=== PATIENT | female | born 1955 | race Caucasian/White ===

== ENCOUNTER 2017-05-15 18:53 | Inpatient (IN) | payer MEDICARE, OTHER ==
[~2017-05-15] VITALS: Ht 160 cm; Wt 50.2 kg
[~2017-05-15 18:53] MED LIST: ALPR1TAB2 PO; METH5TAB2 PO
[2017-05-15] MEDS ORDERED: ONDANSETRON HCL/PF 4 MG/2 ML VIAL IVP ONE (20:00)
[2017-05-15] MEDS ORDERED: IV NS 0.9% 1,000 ML BAG IV ONE ×2 (20:00→23:00)
[2017-05-15] MEDS ORDERED: HYDROMORPHONE 1 MG/1 ML DISP.SYRIN IV ONE (20:00)
[2017-05-15] MEDS ORDERED: ONDANSETRON HCL/PF 4 MG/2 ML VIAL ONE ×2 (20:34→22:51)
[2017-05-15] MEDS ORDERED: HYDROMORPHONE 1 MG/1 ML DISP.SYRIN ONE (20:34)
--- NOTE | 2017-05-15 21:00 | NUR ---
PT A/OX4 BREATHIGN EFFORTLESSLY ON ROOM AIR, PT STATES SHE HAS BEEN HVAING BAD ABD PAIN WITH N/V AND LEG CRAMPING X 1 DAY, PT ON MONITOR, IV PLACED, LABS DRAWN, MADE AWARE WILL CONTINUE TO MONITOR.
[2017-05-15 21:14] LABS: BASOPHILS # (AUTO) 0.4 /CMM (0.0-0.2); BASOPHILS % (AUTO) 2.3 % (0.0-2.0); EOSINOPHILS % (AUTO) 0.2 % (0.0-6.0); HEMATOCRIT 50 % (33-45); HEMOGLOBIN 16.9 g/dL (11.5-14.8); LYMPHOCYTES # (AUTO) 0.5 /CMM (0.8-4.8); LYMPHOCYTES % (AUTO) 3.2 % (20.0-44.0); MEAN CORPUSCULAR HEMOGLOBIN 32 PG (26.0-33.0); MEAN CORPUSCULAR HGB CONC 34 g/dl (31.0-36.0); MEAN CORPUSCULAR VOLUME 96 fL (82-100); MONOCYTES # (AUTO) 0.6 /CMM (0.1-1.30); MONOCYTES % (AUTO) 3.5 % (2.0-12.0); NEUTROPHILS # (AUTO) 14.8 /CMM (1.8-8.9); NEUTROPHILS % (AUTO) 90.8 % (43.0-81.0); PLATELET COUNT (AUTO) 159 /CMM (150-450); RDW COEFFICIENT OF VARIATION 11.7 (11.5-15.0); RED BLOOD CELL COUNT(AUTO) 5.26 MIL/uL (4.0-5.2); WHITE BLOOD COUNT (AUTO) 16.3 K/uL (4.3-11.0)
[2017-05-15 21:21] LABS: CALCIUM, SERUM 11.1 mg/dL (8.5-10.1); CREATININE 1.5 mg/dL (0.6-1.3); POTASSIUM 4.2 mmol/L (3.5-5.1)
[2017-05-15 21:34] LABS: ALBUMIN 4.9 g/dL (3.4-5.0); BILIRUBIN,DIRECT 0.1 mg/dL (0.0-0.2); BILIRUBIN,TOTAL 0.5 mg/dL (0.2-1.0); TOTAL PROTEIN, SERUM 9.5 g/dL (6.4-8.2)
[2017-05-15 21:51] LABS: BAND % (MANUAL) 4 % (0.0-5.0); EOSINOPHILS % (MANUAL) 1 % (0-4); LYMPHOCYTES % (MANUAL) 3 % (16-48); MONOCYTES % (MANUAL) 3 % (0-11.0); NEUTROPHILS % (MANUAL) 89 (42-76)
[2017-05-15] MEDS ORDERED: [UNRECOGNIZED DRUG - MIXTURE] IV SCH (22:00)
[2017-05-15] MEDS ORDERED: METRONIDAZOLE 500MG/ NS 100ML 500 MG in PREMIX 1 EA IV SCH ×2 (22:00→23:00)
--- NOTE | 2017-05-15 22:18 | NUR ---
CALLED NURSING SUP. FOR MS BED
--- NOTE | 2017-05-15 22:24 | NUR ---
CALLED (SHELF STOCKER SURGEON), TRANSFERRED CALL TO VALDEZ ([place])
--- NOTE | 2017-05-15 22:36 | NUR ---
[facility] PAGED, JESSICA CHATMAN GROUT PUMP OPERATOR
--- NOTE | 2017-05-15 22:48 | NUR ---
OG TUBE INSERTION ATTEMPTED, PT BEGAN TO VOMIT AND IS REFUSING ANOTHER TRY, SHANTE KHANNA MADE AWARE WILL CONTINUE TO MONITOR.
[2017-05-15] MEDS ORDERED: METRONIDAZOLE 500MG/ NS 100ML 100 ML IV ONE (22:51)
[2017-05-15] MEDS ORDERED: LEVOFLOXACIN 750 MG /D5W 150ML 750 MG in PREMIX 1 EA IV SCH (23:00)
[2017-05-15] MEDS ORDERED: ONDANSETRON HCL/PF - ER 4 MG/2 ML VIAL IV ONE (23:00)
[2017-05-15] MEDS ORDERED: Z GUARD REMEDY 2 OZ OINT TP PRN (23:30)
[2017-05-15] MEDS ORDERED: MAGNESIUM HYDROXIDE 30 ML UDC PO PRN (23:30)
[2017-05-15] MEDS ORDERED: ALPRAZOLAM 1 MG TABLET PO PRN (23:30)
[2017-05-15] MEDS ORDERED: MAG HYDROX/AL HYDROX/SIMETH 30 ML UDC PO PRN (23:30)
[2017-05-15] MEDS ORDERED: HYDROCODONE/APAP 5/325MG 1 EACH TABLET PO PRN (23:30)
[2017-05-15] MEDS ORDERED: ACETAMINOPHEN 325 MG TABLET PO PRN (23:30)
[2017-05-16] VITALS: BP 135/77
[2017-05-16] MEDS ORDERED: MEROPENEM 1 G in IV NS 0.9% 100 ML IV SCH ×2
--- NOTE | 2017-05-16 | NUR ---
MS VENDING MACHINE REPAIRER INITIAL NOTES ADMIT PT FROM ER VIA ALISIA ACCOMPANIED BY SUPERVISOR LENS GENERATING. DX OF SMALL BOWEL OBSTRUCTION. PT IS ALERT ORIENTED X3 ABLE TO AMBULATE WITH ASSISTANCE AND USING CANE. AWARE WHERE SHE AT AND RE-ORIENTED HER HOW TO USED THE CALL LIGHT SYSTEM. DENIES ANY PAIN OR ANY DISCOMFORT AT THIS TIME. NO N/V NOTED TOO. NO SIGNS OF ANY ACUTE DISTRESS NOTED WELL. IVF NS INFUSING AT THIS TIME ON HER LEFT FOREARM PATENT AND INTACT NO REDNESS NOTED. KEPT HER WARM AND COMFORTABLE AT ALL TIMES. PLACE CALL LIGHT AT REACH. WILL CONTINUE TO MONITOR.
[2017-05-16] MEDS ORDERED: ALPRAZOLAM 0.25 MG TABLET ONE (00:44)
--- NOTE | 2017-05-16 00:44 | NUR ---
RETREAD TECHNICIAN/NOTES ANNETTEREM IVP BAG 1 GM HUNG BY ANOTHER NURSE KARINA /RN ORDERED.
--- NOTE | 2017-05-16 01:04 | NUR ---
TUMBLER MACHINE OPERATOR HELPER/NOTES XANAX .25 MG PO GIVEN PER PT REQUESTED ORDERED. EDUCATE PT REGARDING SIDE EFFECT AND PT UNDERSTOOD WELL KEPT HER SAFE AT ALL TIMES. WILL CONTINUE TO MONITOR. PLACE CALL LIGHT AT REACH.
--- NOTE | 2017-05-16 01:30 | NUR ---
SR. LOGISTICS ANALYST/NOTES GOT REPORT FROM LAB REGARDING CRITICAL LAB RESULT , LACTIC ACID 2.O AWARE. PT ON IVF OF NS AT THIS TIME. WILL CONTINUE TO MONITOR.
[2017-05-16 03:25] LABS: BASOPHILS % (AUTO) 0.1 % (0.0-2.0); HEMATOCRIT 42 % (33-45); HEMOGLOBIN 14.1 g/dL (11.5-14.8); LYMPHOCYTES # (AUTO) 0.4 /CMM (0.8-4.8); MEAN CORPUSCULAR HEMOGLOBIN 32 PG (26.0-33.0); MEAN CORPUSCULAR HGB CONC 34 g/dl (31.0-36.0); MEAN CORPUSCULAR VOLUME 96 fL (82-100); MONOCYTES # (AUTO) 0.2 /CMM (0.1-1.30); MONOCYTES % (AUTO) 2.7 % (2.0-12.0); NEUTROPHILS # (AUTO) 8.2 /CMM (1.8-8.9); NEUTROPHILS % (AUTO) 92.2 % (43.0-81.0); PLATELET COUNT (AUTO) 151 /CMM (150-450); RDW COEFFICIENT OF VARIATION 12.7 (11.5-15.0); RED BLOOD CELL COUNT(AUTO) 4.36 MIL/uL (4.0-5.2); WHITE BLOOD COUNT (AUTO) 8.9 K/uL (4.3-11.0)
[2017-05-16 03:39] LABS: CALCIUM, SERUM 8.7 mg/dL (8.5-10.1); CREATININE 1.1 mg/dL (0.6-1.3); PHOSPHORUS 5.4 mg/dL (2.5-4.9); POTASSIUM 4.4 mmol/L (3.5-5.1)
[2017-05-16 03:50] LABS: THYROID STIMULATING HORMONE 0.779 uIU/mL (0.358-3.74)
--- NOTE | 2017-05-16 04:57 | NUR ---
OFFSHORE WIND OPERATIONS MANAGER/NOTES REMAINS SLEEPING AT THIS TIME , NO N/V NOTED , RESPIRATION EVEN AND NON-LABORED, NOT IN ANY ACUTE DISTRESS NOTED. KEPT HER WARM AND COMFORTABLE AT ALL TIMES. PLACE CALL AT REACH.
[2017-05-16] MEDS ORDERED: ONDANSETRON HCL/PF 4 MG/2 ML VIAL ONE (05:48)
[2017-05-16] MEDS ORDERED: HYDROMORPHONE 1 MG/1 ML DISP.SYRIN ONE (05:49)
[2017-05-16] MEDS: ONDANSETRON HCL/PF 4 MG/2 ML VIAL IVP PRN ×2 (05:52→17:42)
[2017-05-16] MEDS: HYDROMORPHONE 1 MG/1 ML DISP.SYRIN IV PRN ×2 (05:55→15:11)
[2017-05-16] MEDS: IV NS 0.9% 1,000 ML IV PRN ×2 (06:02→08:10)
--- NOTE | 2017-05-16 06:02 | NUR ---
coil rewind machine operator/notes c/o N/v and abdominal pain 05/31 , zofran 4mg given and dilaudid 1 mg given sade IVP as ordered by another nurse. safety precaution applied and will continue to monitor.
--- NOTE | 2017-05-16 07:32 | NUR ---
SALES SUPPORT REP/CLOSING NOTES PT AWAKE AND ALERT WITH IVF NS AT 75 ML INFUSING ON HER LEFT FOREARM. NOT IN ANY ACUTE DISTRESS NOTED. DUE MEDS GIVEN. NO N/V AFTER PRN MED GIVEN,. SLEPT WELL. KEPT HER WARM AND COMFORTABLE AT ALL TIMES. ENDORSE TO AM NURSE ZAHIRA FOR CONTINUITY OF CARE. PLACE CALL LIGHT AT REACH.
--- NOTE | 2017-05-16 07:34 | NUR ---
RN NOTE RECEIVED PT. PT AWAKE AND IN BED. A&OX3. NO S/S OF SOB. PT C/O NEEDING METHADONE TO HANDLE WITHDRAWAL SYMPTOMS. WILL F/U WITH PHYSICIAN. IV ACCESS LOCATED ON LFA 22G, RUNNING NS AT 75 ML/HR. SAFETY MEASURES IN PLACE. CALL LIGHT WITHIN REACH. WILL CONTINUE TO MONITOR.
[2017-05-16 08:00] VITALS: BP 113/60
[2017-05-16] MEDS: PANTOPRAZOLE 40 MG VIAL IV SCH (08:10)
[2017-05-16] MEDS ORDERED: ALPRAZOLAM 0.25 MG TABLET PO PRN (08:30)
[2017-05-16] MEDS ORDERED: METH10TA2 PO (10:07)
[2017-05-16] MEDS ORDERED: DIATR MEGLU/DIATRIZOATE SODIUM 120 ML BOTTLE (GASTROGRAPHIN) ONE (11:03)
[2017-05-16 13:18] LABS: APPEARANCE,URINE CLEAR (CLEAR); BILIRUBIN,URINE NEGATIVE (NEGATIVE); BLOOD, URINE NEGATIVE Ery/uL (NEGATIVE); COLOR,URINE YELLOW (YELLOW); KETONES,URINE NEGATIVE (NEGATIVE); LEUKOCYTE ESTERASE ,URINE NEGATIVE (NEGATIVE); NITRITE, URINE NEGATIVE (NEGATIVE); PROTEIN,URINE NEGATIVE (NEGATIVE); UGLUCOSE NEGATIVE (NEGATIVE); UROBILINOGEN,URINE 0.2 EU/dL (0.2)
[2017-05-16] MEDS: MEROPENEM 1 G in IV NS 0.9% 100 ML IV SCH (13:26)
[2017-05-16] MEDS: LORAZEPAM INJ 2 MG/ML VIAL IV PRN ×2 (13:32→21:29)
[2017-05-16 16:00] VITALS: BP 115/69
--- NOTE | 2017-05-16 18:33 | NUR ---
RN CLOSING NOTE PT IS AWAKE AND ALERT IN BED. NO S/S OF DISTRESS OR PAIN. ALL PATIENT NEEDS MET. IVF INFUSING NS AT 75ML/HR AT LFA 22G. SAFETY MEASURES IN PLACE. CALL LIGHT WITHIN REACH. WILL ENDORSE TO MIDWIFE PRACTITIONER FOR MYRON.
--- NOTE | 2017-05-16 19:30 | NUR ---
MS JUVENTINO INITIAL NOTES SEEN PT IN BED AWAKE AND ALERT WITH IVF OF NS AT 75ML/HR .NOT IN ANY ACUTE DISTRESS NOTED. SEEN BY DR LEO WITH ORDERS NOTED . KEPT HER WARM AND COMFORTABLE AT ALL TIMES. WILL CONTINUE TO MONITOR.
[2017-05-16 20:00] VITALS: BP 137/79
--- NOTE | 2017-05-16 21:30 | NUR ---
CLARK DRIVER/NOTES ATIVAN 0.5 MG IVP ADMINISTERED BY ANOTHER NURSE PER PT REQUESTED. EDUCATE PT FOR SAFETY . KEPT HER COMFORTABLE AT ALL TIMES. WILL CONTINUE MONITORING.
[2017-05-17] MEDS: MEROPENEM 1 G in IV NS 0.9% 100 ML IV SCH (00:09)
[2017-05-17 07:10] LABS: BASOPHILS % (AUTO) 0.4 % (0.0-2.0); EOSINOPHILS # (AUTO) 0.1 /CMM (0.0-0.7); EOSINOPHILS % (AUTO) 1.7 % (0.0-6.0); HEMATOCRIT 38 % (33-45); HEMOGLOBIN 12.7 g/dL (11.5-14.8); LYMPHOCYTES # (AUTO) 1.9 /CMM (0.8-4.8); LYMPHOCYTES % (AUTO) 30.9 % (20.0-44.0); MEAN CORPUSCULAR HEMOGLOBIN 32 PG (26.0-33.0); MEAN CORPUSCULAR HGB CONC 33 g/dl (31.0-36.0); MEAN CORPUSCULAR VOLUME 97 fL (82-100); MONOCYTES # (AUTO) 0.5 /CMM (0.1-1.30); MONOCYTES % (AUTO) 8.6 % (2.0-12.0); NEUTROPHILS # (AUTO) 3.6 /CMM (1.8-8.9); NEUTROPHILS % (AUTO) 58.4 % (43.0-81.0); PLATELET COUNT (AUTO) 120 /CMM (150-450); RED BLOOD CELL COUNT(AUTO) 3.94 MIL/uL (4.0-5.2); WHITE BLOOD COUNT (AUTO) 6.2 K/uL (4.3-11.0)
[2017-05-17 07:18] LABS: CALCIUM, SERUM 8.3 mg/dL (8.5-10.1); CREATININE 0.7 mg/dL (0.6-1.3); POTASSIUM 4.4 mmol/L (3.5-5.1)
--- NOTE | 2017-05-17 07:30 | NUR ---
MS/RN Patient received Patient received from maintenance worker municipal. No needs at this time, call light within reach, will continue to monitor.
[2017-05-17 08:00] VITALS: BP 130/71
--- NOTE | 2017-05-17 08:03 | NUR ---
SOLE POLISHER CLOSING NOTES PT SEEN STANDING AND DOING HER MORNING ROUTINE, NOT IN ANY ACUTE DISTRESS NOTED. STABLE REYES THE NIGHT AND SLEPT WELL AFTER ATIVAN GIVEN. ALL DUE MEDS GIVEN AND ALL NEEDS MET. HEPLOCK AT THIS TIME. ENDORSE TO AM NURSE FOR CONTINUITY OF CARE. ENDORSE TO AM NURSE FOR CONTINUITY OF CARE.
[2017-05-17] MEDS: PANTOPRAZOLE 40 MG VIAL IV SCH (08:16)
[2017-05-17] MEDS: LORAZEPAM INJ 2 MG/ML VIAL IV PRN (08:16)
--- NOTE | 2017-05-17 08:25 | NUR ---
MS/RN Medications Morning medications administered as ordered.
[2017-05-17] MEDS ORDERED: MONTELUKAST SODIUM (10MG) 10 MG TABLET PO STA (09:00)
--- NOTE | 2017-05-17 09:46 | NUR ---
MS/felt hat inspector and packer instructions / Post follow up Patient to be discharged to home. Order entered into computer by Uziel Brar NP, no new prescription needed. Education provided about signs and symptoms and when to return to the emergency room. Patient stated that she would make her own follow up appointment with her primary care doctor in 5-10 days -Dr Cortes . Exit care given to patient, time allowed for all questions and concerns to be addressed. Belongings list signed, everything accounted for. Heplock and name bands removed. Transport will be provided by career and technology education teacher.
[2017-05-17 09:57] VITALS: BP 130/71
--- NOTE | 2017-05-17 10:15 | NUR ---
MS/RN Discharged Patient discharged to home in stable condition.
== END 2017-05-17 10:04 | disposition home or self-care (01) | DRG 388 ==
LOC: ER 18:58 → MED 22:56
PROVIDERS: ADMIT Nurse Practitioner Acute Care; ATTEND Nurse Practitioner Acute Care
DX: K56.60 Unspecified intestinal obstruction (principal); N17.0 Acute kidney failure with tubular necrosis; J44.9 Chronic obstructive pulmonary disease, unspecified; M19.90 Unspecified osteoarthritis, unspecified site; Z87.891 Personal history of nicotine dependence; R74.0 Nonspecific elevation of levels of transaminase and lactic acid dehydrogenase [LDH]; Z86.19 Personal history of other infectious and parasitic diseases; Z87.898 Personal history of other specified conditions; E86.0 Dehydration
CPT/HCPCS: 36415; 72128-TC; 74250-TC; 80048-TC; 80061-TC; 80076-TC; 81000-TC; 83605-TC; 83690-TC; 83735-TC; 84100-TC; 84443-TC; 85025-TC; 87040-TC; 87081-TC; 87086-TC; A4216; A4606; C9113; J0744; J1170; J1956; J2060; J2185; J2405; J3490; J7030; Q9963; Z7610

== ENCOUNTER 2017-08-25 15:18 | Inpatient (IN) | payer MEDICARE, MEDICAID ==
[~2017-08-25] VITALS: Ht 160 cm; Wt 46.3 kg
[~2017-08-25 15:18] MED LIST changes: +METH10TA2 PO
[2017-08-25] MEDS ORDERED: Magnesium 1GM/D5W 100ML PREMIX 200 ML IV ONE (15:31)
[2017-08-25] MEDS ORDERED: Magnesium 1GM/D5W 100ML PREMIX 100 ML IV ONE ×2 (15:51→16:20)
[2017-08-25] MEDS ORDERED: DEXAMETHASONE SOD PHOSPHATE 10 MG/ML VIAL ONE (15:52)
[2017-08-25 15:53] LABS: BASOPHILS % (AUTO) 0.5 % (0.0-2.0); EOSINOPHILS # (AUTO) 0.2 /CMM (0.0-0.7); EOSINOPHILS % (AUTO) 3.6 % (0.0-6.0); HEMATOCRIT 40 % (33-45); HEMOGLOBIN 13.2 g/dL (11.5-14.8); LYMPHOCYTES # (AUTO) 1.3 /CMM (0.8-4.8); LYMPHOCYTES % (AUTO) 25.8 % (20.0-44.0); MEAN CORPUSCULAR HEMOGLOBIN 31 PG (26.0-33.0); MEAN CORPUSCULAR HGB CONC 33 g/dl (31.0-36.0); MEAN CORPUSCULAR VOLUME 94 fL (82-100); MONOCYTES # (AUTO) 0.5 /CMM (0.1-1.30); MONOCYTES % (AUTO) 9.9 % (2.0-12.0); NEUTROPHILS # (AUTO) 3.1 /CMM (1.8-8.9); NEUTROPHILS % (AUTO) 60.2 % (43.0-81.0); PLATELET COUNT (AUTO) 157 /CMM (150-450); RDW COEFFICIENT OF VARIATION 11.8 (11.5-15.0); RED BLOOD CELL COUNT(AUTO) 4.21 MIL/uL (4.0-5.2); WHITE BLOOD COUNT (AUTO) 5.1 K/uL (4.3-11.0)
[2017-08-25] MEDS ORDERED: IV NS 0.9% 1,000 ML BAG IV ONE (16:00)
[2017-08-25] MEDS ORDERED: IPRATROPIUM NEB FS 0.5 MG/2.5 ML AMPUL.NEB NEB ONE (16:00)
[2017-08-25] MEDS ORDERED: DEXAMETHASONE SOD PHOSPHATE 10 MG/ML VIAL IV ONE (16:00)
[2017-08-25] MEDS ORDERED: ALBUTEROL FS 2.5 MG/3 ML VIAL.NEB CONTNEB ONE (16:00)
--- NOTE | 2017-08-25 16:00 | NUR ---
CALLED NURSING SUP. FOR TELE BED
[2017-08-25 16:03] LABS: CALCIUM, SERUM 9.1 mg/dL (8.5-10.1); CARBON DIOXIDE 31 mmol/L (21-32); CHLORIDE 103 mmol/L (98-107); CREATININE 0.8 mg/dL (0.6-1.3); GLUCOSE 92 mg/dL (74-106); POTASSIUM 4.3 mmol/L (3.5-5.1); SODIUM SERUM 139 mmol/L (136-145); UREA NITROGEN, BLOOD 19 mg/dL (7-18)
[2017-08-25] MEDS ORDERED: ALBUTEROL FS 2.5 MG/3 ML VIAL.NEB ONE (16:10)
[2017-08-25] MEDS ORDERED: IPRATROPIUM NEB FS 0.5 MG/2.5 ML AMPUL.NEB ONE (16:10)
[2017-08-25 16:11] LABS: TROPONIN I < 0.017 ng/mL (0.00-0.056)
[2017-08-25 16:17] LABS: ALANINE AMINOTRANSFERASE 43 U/L (12-78); ALBUMIN 3.7 g/dL (3.4-5.0); ALKALINE PHOSPHATASE 79 U/L (46-116); ASPARTATE AMINOTRANSFERASE 77 U/L (15-37); B-TYPE NATRIURETIC PEPTIDE 657 PG/ML (0-125); BILIRUBIN,DIRECT 0.1 mg/dL (0.0-0.2); BILIRUBIN,TOTAL 0.3 mg/dL (0.2-1.0); TOTAL PROTEIN, SERUM 7.4 g/dL (6.4-8.2)
[2017-08-25] MEDS ORDERED: LINA145C PO (16:29)
[2017-08-25] MEDS ORDERED: LORA1TAB PO (16:29)
[2017-08-25] MEDS ORDERED: MONT10TA22 PO (16:29)
[2017-08-25] MEDS ORDERED: ACID1TAB12 PO (16:29)
[2017-08-25] MEDS ORDERED: MULT-24 PO (16:29)
[2017-08-25] MEDS ORDERED: PANT40TA4 PO (16:29)
[2017-08-25] MEDS ORDERED: LORA0.5T PO (16:29)
[2017-08-25] MEDS ORDERED: MAGN400T26 PO (16:29)
[2017-08-25] MEDS ORDERED: L. A1CAP12 PO (16:29)
[2017-08-25] MEDS ORDERED: METH10OR11 PO (16:29)
[2017-08-25] MEDS ORDERED: FAMO40TA7 PO (16:29)
--- NOTE | 2017-08-25 16:38 | NUR ---
CALLED , LEFT MESSAGE ON VOICEMAIL
--- NOTE | 2017-08-25 16:56 | NUR ---
CALLED , TRANSFERRED CALL TO
[2017-08-25] MEDS ORDERED: FUROSEMIDE 40 MG/4 ML VIAL ONE (16:58)
--- NOTE | 2017-08-25 16:58 | NUR ---
PER , GIVE PT TO [facility].
--- NOTE | 2017-08-25 16:59 | NUR ---
[facility] PAGED, COGENERATION OPERATOR
[2017-08-25] MEDS ORDERED: FUROSEMIDE 40 MG/4 ML VIAL IV ONE (17:00)
[2017-08-25 17:30] VITALS: BP 134/71
--- NOTE | 2017-08-25 17:30 | NUR ---
PATIENTS TRANSPORTER RECEIVED PT. A&OX3. PT. WAS BROUGHT FROM EMERGENCY DEPARTMENT. PT. WAS PLACED ON TELE MONITOR.
[2017-08-25 18:00] VITALS: BP 134/71
[2017-08-25] MEDS ORDERED: ACETAMINOPHEN 325 MG TABLET PO PRN (18:30)
[2017-08-25] MEDS: PANTOPRAZOLE 40 MG VIAL IV SCH (19:02)
[2017-08-25] MEDS: methylPREDNISolone SOD SUCC 125 MG/2ML VIAL IV SCH (19:11)
--- NOTE | 2017-08-25 19:25 | NUR ---
RN NOTES MD ORDERS TO GIVE IV ANTIBIOTICS ZITHROMAX 500 MG IV, AND ROCEPHIN 1GM IV. PT. IS ALLERGIC TO PENICILLIN, AND ERYTHROMYCIN BASED ANTIBIOTICS. DEJAH SCHWARTZ, WAS MADE AWARE OF PT.'S ALLERGIES.
--- NOTE | 2017-08-25 19:30 | NUR ---
RN CLOSING NOTES PT. IN BED A&OX4. ON TELE MONITOR SINUS RHYTHM 80 BPM. BREATHING ON OXYGEN AT 2L/MIN VIA NASAL CANNULA. NO S/S OF ACUTE DISTRESS. IV ACCESS ON LEFT WRIST IS PATENT AND SALINE LOCKED. BED IS IN LOWEST, LOCKED POSITION, 2 SIDE RAILS UP, AND INSTRUCTED PT. TO USE CALL LIGHT WITHIN REACH. WILL ENDORSE REPORT TO NURSE.
--- NOTE | 2017-08-25 19:35 | NUR ---
RN NOTES RECEIVED PT. AWAKE ON BED, A/OX3, SR ON TELE MONITOR, HR- 77, PT IS RECEIVING BREATHING TREATMENT, DENIES ANY PAIN, NO SOB, CALL LIGHT WITHIN REACH, SIDERAILS UPX2 CONTINUE TO MONITOR
[2017-08-25] MEDS: ALBUTEROL FS 2.5 MG/0.5 ML VIAL.NEB NEB SCH (19:42)
[2017-08-25] MEDS: IPRATROPIUM NEB FS 0.5 MG/2.5 ML AMPUL.NEB NEB SCH (19:42)
[2017-08-25] MEDS ORDERED: LORAZEPAM 1 MG TABLET ONE (19:56)
[2017-08-25 20:00] VITALS: BP_SYST 100; BP_SYST 99; BP_DIAS 54; BP_DIAS 58
[2017-08-25] MEDS: LORAZEPAM 1 MG TABLET PO PRN (20:07)
--- NOTE | 2017-08-25 20:09 | NUR ---
RN NOTES PT IS FEELING ANXIOUS AND ASKED FOR ATIVAN.. ATIVAN 1 MG PO GIVEN ORDERED, V/STABLE
[2017-08-26] VITALS: BP 103/63
--- NOTE | 2017-08-26 00:02 | NUR ---
RN NOTES PER PRODUCE DEPARTMENT SUPERVISOR- GIVE ROCEPHIN 1GM AND ZITHROMAX 500MG IV PREVIOUSLY ORDER OF DR. BROWN, ORDER NOTED AND CARRIED OUT
[2017-08-26] MEDS ORDERED: CEFTRIAXONE 1 G VIAL ONE (00:03)
[2017-08-26] MEDS ORDERED: AZITHROMYCIN 500 MG VIAL ONE (00:18)
[2017-08-26] MEDS: CEFTRIAXONE 1 G in IV D5W 50 ML IV SCH ×2 (00:27→23:47)
--- NOTE | 2017-08-26 01:20 | NUR ---
RN NOTES GAVE ROCEPHIN 1GM IV , NO REACTION NOTED
[2017-08-26] MEDS: AZITHROMYCIN 500 MG in IV D5W 250 ML IV SCH (01:31)
[2017-08-26] MEDS ORDERED: LORAZEPAM 1 MG TABLET ONE (01:36)
[2017-08-26] MEDS: LORAZEPAM 1 MG TABLET PO PRN ×4 (01:38→23:45)
--- NOTE | 2017-08-26 01:38 | NUR ---
RN NOTES PT IS COMPLAINING OF FEELING ANXIOUS- ATIVAN 1 MG PO GIVEN ORDERED, V/S STABLE
[2017-08-26] MEDS: IPRATROPIUM NEB FS 0.5 MG/2.5 ML AMPUL.NEB NEB SCH ×4 (01:40→19:46)
[2017-08-26] MEDS: ALBUTEROL FS 2.5 MG/0.5 ML VIAL.NEB NEB SCH ×4 (01:40→19:46)
[2017-08-26 04:00] VITALS: BP 102/55
--- NOTE | 2017-08-26 06:34 | NUR ---
RN NOTES AWAKE, DENIES PAIN, NO SOB, IV LINE PATENT NO REDNESS, OR SWOLLEN, CALL LIGHT WITHIN REACH, SIDERAILS UPX2 PT. NEEDS ATTENDED
[2017-08-26 06:58] LABS: BASOPHILS % (AUTO) 0.2 % (0.0-2.0); HEMATOCRIT 37 % (33-45); HEMOGLOBIN 12.6 g/dL (11.5-14.8); LYMPHOCYTES # (AUTO) 0.4 /CMM (0.8-4.8); LYMPHOCYTES % (AUTO) 14.2 % (20.0-44.0); MEAN CORPUSCULAR HEMOGLOBIN 33 PG (26.0-33.0); MEAN CORPUSCULAR HGB CONC 34 g/dl (31.0-36.0); MEAN CORPUSCULAR VOLUME 96 fL (82-100); MONOCYTES # (AUTO) 0.2 /CMM (0.1-1.30); MONOCYTES % (AUTO) 8.1 % (2.0-12.0); NEUTROPHILS # (AUTO) 2.3 /CMM (1.8-8.9); NEUTROPHILS % (AUTO) 77.5 % (43.0-81.0); PLATELET COUNT (AUTO) 124 /CMM (150-450); RDW COEFFICIENT OF VARIATION 12.9 (11.5-15.0); RED BLOOD CELL COUNT(AUTO) 3.89 MIL/uL (4.0-5.2); WHITE BLOOD COUNT (AUTO) 2.9 K/uL (4.3-11.0)
[2017-08-26 07:15] LABS: ALBUMIN 3.4 g/dL (3.4-5.0); BILIRUBIN,TOTAL 0.2 mg/dL (0.2-1.0); CALCIUM, SERUM 9.5 mg/dL (8.5-10.1); CREATININE 0.7 mg/dL (0.6-1.3); MAGNESIUM 2.2 mg/dL (1.8-2.4); PHOSPHORUS 4.2 mg/dL (2.5-4.9); TOTAL PROTEIN, SERUM 7.1 g/dL (6.4-8.2)
--- NOTE | 2017-08-26 07:35 | NUR ---
RN OPENING NOTES PT. IN BED AWAKE, A&OX4. ON TELE MONITOR SINUS RHYTHM BRADYCARDIA 60 BPM. BREATHING UNLABORED, AND EVENLY ON OXYGEN AT 2L/MIN VIA NASAL CANNULA. NO S/S OF ACUTE DISTRESS. IV ACCESS ON LEFT WRIST IS PATENT, AND INTACT. BED IS IN LOWEST, LOCKED POSITION, 2 SIDE RAILS UP, AND INSTRUCTED PT. TO USE CALL LIGHT WITHIN REACH. ALL NEEDS ATTENDED TO. WILL CONTINUE TO ASSESS AND MONITOR.
[2017-08-26 08:00] VITALS: BP 123/67
[2017-08-26] MEDS: methylPREDNISolone SOD SUCC 125 MG/2ML VIAL IV SCH ×3 (08:48→16:52)
[2017-08-26] MEDS: PANTOPRAZOLE 40 MG VIAL IV SCH (08:48)
[2017-08-26 16:00] VITALS: BP 127/76
--- NOTE | 2017-08-26 19:20 | NUR ---
RN CLOSING NOTES PT. IS IN BED AWAKE, A&OX4 WATCHING TV. BREATHING UNLABORED, AND EVENLY ON OXYGEN AT 2L/MIN VIA NASAL CANNULA. NO S/S OF ACUTE DISTRESS. IV ACCESS ON LEFT WRIST IS PATENT, AND INTACT. BED IS IN LOWEST, LOCKED POSITION, 2 SIDE RAILS UP, AND INSTRUCTED PT. TO USE CALL LIGHT WITHIN REACH. ALL NEEDS ATTENDED TO. WILL ENDORSE REPORT TO NURSE.
--- NOTE | 2017-08-26 19:40 | NUR ---
RN NOTES RECEIVED PT. SLEEPING BUT AROUSABLE, DENIES PAIN AT THIS TIME., NO SOB, CALL LIGHT WITHIN REACH, SIDERAILS UPX2 CONTINUE TO MONITOR
[2017-08-26 20:00] VITALS: BP 110/74
--- NOTE | 2017-08-26 23:52 | NUR ---
RN NOTES COMPLAINED OF FEELING ANXIOUS- ATIVAN 1MG PO GIVEN ORDERED, V/S STABLE
[2017-08-27] MEDS: ALBUTEROL FS 2.5 MG/0.5 ML VIAL.NEB NEB SCH ×4 (01:30→19:33)
[2017-08-27] MEDS: IPRATROPIUM NEB FS 0.5 MG/2.5 ML AMPUL.NEB NEB SCH ×4 (01:30→19:33)
[2017-08-27] MEDS: AZITHROMYCIN 500 MG in IV D5W 250 ML IV SCH (01:41)
[2017-08-27] MEDS: LORAZEPAM 1 MG TABLET PO PRN ×2 (06:26→16:39)
--- NOTE | 2017-08-27 06:30 | NUR ---
RN NOTES PT IS ANXIOUS AND ASKING FOR ATIVANM ATIVAN 1,MG PO GIVEN ORDERED, V/S STABLE, MORNING CARE RENDERED, CALL LIGHT WITHIN REACH, SIDERAILS UPX2 CONTINUE TO MONITOR
--- NOTE | 2017-08-27 07:18 | NUR ---
RT REC PT ON ROOM AIR DSNT WANT UR NASAL CANNULA ON, STATED THAT SHE TOOK IT OFF AT AROUND 2AM SP02 94% ON ROOM AIR HR 78 RR20 Addendum: 08/27/17 at 0720 by ADIN GONSALEZ RT Amended: Links added.
[2017-08-27 08:00] VITALS: BP 121/78
--- NOTE | 2017-08-27 08:30 | NUR ---
RN NOTES PATIENT IN THE ROOM SITTING EDGE OF THE BED, PATIENT HAS COPD, COUGHING BUT NO DISCHARGE, V/S TAKEN O2 -ROOM AIR 91/92, PATIENT EATING, MED COMPLIANT, PATIENT SELF CARE, USING CANE, ENCOURAGED TO INCREASE FLUID INTAKE. NEEDS ATTENDED AND ANTICIPATED, SAFETY/ FALL PRECAUTION MAINTAINED ALL THE TIME. ENCOURAGED TO EXPRESS FEELINGS AND CONCERNS. CALL DE LA TORRE WITHIN TO REACH, CONTINUED MONITORING.
[2017-08-27] MEDS: PANTOPRAZOLE 40 MG VIAL IV SCH (10:33)
[2017-08-27] MEDS: methylPREDNISolone SOD SUCC 125 MG/2ML VIAL IV SCH ×3 (10:33→16:39)
--- NOTE | 2017-08-27 11:00 | NUR ---
RN NOTES PATIENT DENIED PAIN AT THIS TIME, STILL SITTING EDGE OF THE BED, GERARDO SOUND DIMINISHED, ON ROOM AIR O2-, SEEN DRIVE MAN JESSICA, NO ACUTE DISTRESS, CALL LIGHT WITHIN TO REACH, SAFETY PRECAUTION MAINTAINED ALL THE TIME. CONTINUED MONITORING.
--- NOTE | 2017-08-27 14:00 | NUR ---
RN NOTES PATIENT IN THE ROOM, NO ACUTE DISTRESS, NO RESPIRATORY DISTRESS, PATIENT TAKING METHADONE AT HOME 214 MG PO DAILY, CALLED JESSICA WOODRUFF, AND GET ORDER, ORDER TAKEN, AND CARRIED OUT, PATIENT AMBULATORY USING CANE, SAFETY PRECAUTION MAINTAINED ALL THE TIME WITH HELP OF LEAFLET OR NEWSPAPER DELIVERER, CONTINUED MONITORING.
--- NOTE | 2017-08-27 14:35 | NUR ---
RT CHECKED PT SP02 90% HR 81 RR20 CAME TO GIVE BREATHING TX, ASKED TO COME BACK BECAUSE SHE NEED TO USE THE BATHROOM TO GO #2 Addendum: 08/27/17 at 1437 by ADIN GONSALEZ RT Amended: Links added.
[2017-08-27] MEDS: METHADONE HCL 10 MG TABLET PO SCH (15:00)
[2017-08-27 16:00] VITALS: BP 129/76
[2017-08-27] MEDS: ONDANSETRON HCL/PF 4 MG/2 ML VIAL IVP PRN (16:48)
--- NOTE | 2017-08-27 16:48 | NUR ---
RN NOTES PATIENT IN TH ROOM, NO RESPIRATORY DISTRESS, ADMINISTERED ATIVAN 1 MG PO PRN FOR ANXIETY, AND ALSO ADMINISTERED ZOFRAN 4MG/ML IV PUSH PER PATIENT REQUEST FOR NAUSEA, V/S TAKEN BP -129/76, P-72, PT AMBULATORY SELF CARE, CALL LIGHT WITHIN TO REACH, SAFETY PRECAUTION MAINTAINED ALL THE TIME.
--- NOTE | 2017-08-27 19:00 | NUR ---
RN NOTES FOUND HOME MEDICATION WITH THE PATIENT WHICH IS TRYING TO TAKE AT THIS TIME. MEDICATION NAME IS ADVANCE ENZYME SYSTEM, TAKEN MEDICATION FROM PATIENT, AND OTHER MEDICATION. DR ABRAHAM NOTIFIED, INCIDENT REPORT DONE, SEND MEDICATION TO THE PHARMACY. PATIENT STABLE AT THIS TIME, NO C/S PAIN, MEDICALLY STABLE. PT AMBULATING USING WALKER. CALL LIGHT WITHIN TO REACH. SAFETY PRECAUTION MAINTAINED ALL THE TIME. ENDORSED ONCOMING NURSE FOR CONTINUATION OF CARE.
--- NOTE | 2017-08-27 20:25 | NUR ---
Patient at this time recieving a resp treatment. She is alert and Orientated X4 speech clear moving all ext. No noted distress. Watching TV
[2017-08-27 20:59] VITALS: BP 119/64
[2017-08-27] MEDS: MONTELUKAST SODIUM (10MG) 10 MG TABLET PO SCH (21:55)
[2017-08-27 23:48] VITALS: BP 119/64
[2017-08-28] MEDS: CEFTRIAXONE 1 G in IV D5W 50 ML IV SCH ×2 (00:49→21:03)
[2017-08-28] MEDS: AZITHROMYCIN 500 MG in IV D5W 250 ML IV SCH (01:07)
[2017-08-28] MEDS: IPRATROPIUM NEB FS 0.5 MG/2.5 ML AMPUL.NEB NEB SCH ×6 (01:34→23:43)
[2017-08-28] MEDS: ALBUTEROL FS 2.5 MG/0.5 ML VIAL.NEB NEB SCH ×6 (01:34→23:43)
--- NOTE | 2017-08-28 06:26 | NUR ---
Patient asked for Ativan X1 when entered the room she was sound asleep, not given. She does use the call light to get up to the bathroom and does needs assist. O2 2 liters on through the night and Sats> 92% Cooperative patient
[2017-08-28 07:39] LABS: BASOPHILS % (AUTO) 0.2 % (0.0-2.0); HEMATOCRIT 38 % (33-45); HEMOGLOBIN 12.9 g/dL (11.5-14.8); LYMPHOCYTES # (AUTO) 0.6 /CMM (0.8-4.8); LYMPHOCYTES % (AUTO) 9.7 % (20.0-44.0); MEAN CORPUSCULAR HEMOGLOBIN 32 PG (26.0-33.0); MEAN CORPUSCULAR HGB CONC 34 g/dl (31.0-36.0); MEAN CORPUSCULAR VOLUME 95 fL (82-100); MONOCYTES # (AUTO) 0.5 /CMM (0.1-1.30); MONOCYTES % (AUTO) 8.6 % (2.0-12.0); NEUTROPHILS # (AUTO) 4.7 /CMM (1.8-8.9); NEUTROPHILS % (AUTO) 81.5 % (43.0-81.0); PLATELET COUNT (AUTO) 132 /CMM (150-450); RED BLOOD CELL COUNT(AUTO) 4.02 MIL/uL (4.0-5.2); WHITE BLOOD COUNT (AUTO) 5.7 K/uL (4.3-11.0)
[2017-08-28 07:59] LABS: CALCIUM, SERUM 9.6 mg/dL (8.5-10.1); CREATININE 0.7 mg/dL (0.6-1.3); POTASSIUM 4.1 mmol/L (3.5-5.1)
[2017-08-28 08:00] VITALS: BP 146/99
[2017-08-28 08:04] LABS: PREALBUMIN 15.9 MG/DL (18.0-35.7)
[2017-08-28] MEDS: MULTIVITAMINS,THERAGRAN 1 UDTAB TABLET PO SCH (08:15)
[2017-08-28] MEDS: [UNRECOGNIZED DRUG - OTHER] PO SCH ×3 (08:15→17:02)
[2017-08-28] MEDS: PANTOPRAZOLE 40 MG VIAL IV SCH (08:15)
[2017-08-28] MEDS: methylPREDNISolone SOD SUCC 125 MG/2ML VIAL IV SCH ×3 (08:15→17:02)
[2017-08-28] MEDS: PYRIDOXINE HCL 50 MG TABLET PO SCH (08:15)
[2017-08-28] MEDS: METHADONE HCL 10 MG TABLET PO SCH (08:45)
[2017-08-28] MEDS ORDERED: METHADONE HCL 10 MG TABLET PO SCH (09:00)
[2017-08-28] MEDS: ONDANSETRON HCL/PF 4 MG/2 ML VIAL IVP PRN ×2 (10:17→23:40)
[2017-08-28] MEDS ORDERED: LEVOFLOXACIN 750 MG /D5W 150ML 750 MG in PREMIX 1 EA IV SCH (11:30)
[2017-08-28] MEDS ORDERED: MENTHOL/CETYLPYRD (CEPACOL) 1 LOZ LOZENGE PO PRN (11:30)
[2017-08-28] MEDS ORDERED: LEVOFLOXACIN 500 MG /D5W 100ML 500 MG in PREMIX 1 EA IV SCH (12:30)
[2017-08-28] MEDS: LORAZEPAM 1 MG TABLET PO PRN ×2 (12:49→23:42)
[2017-08-28] MEDS: ACETYLCYSTEINE 20% SOLN 800 MG/4 ML VIAL NEB SCH ×2 (15:38→23:43)
[2017-08-28 16:00] VITALS: BP 126/82
--- NOTE | 2017-08-28 18:59 | NUR ---
RN CLOSING NOTES NO SIGNIFICANT CHANGE IN PATIENT CONDITION. NO SOB OR DISTRESS NOTED AT THIS TIME. PATIENT DENIES PAIN. BED IN A LOW POSITION, CALL LIGHT WITHIN PATIENT REACH. WILL ENDORSE FOR MYRON.
[2017-08-28 20:00] VITALS: BP 111/70
--- NOTE | 2017-08-28 20:06 | NUR ---
Patient recieved alert and orientated. Enjoys coversering. smiling and sitting on the edge of the bed. O2 mask is being worn at this time. Unlabored resp. Comfortable and no complaints at this time. Reminded her to call for assit when getting In and Out of bed for safety, she said she would.
[2017-08-28 20:31] VITALS: BP 111/70
[2017-08-28] MEDS ORDERED: AZITHROMYCIN 250 MG TABLET PO SCH (21:00)
[2017-08-28] MEDS: MONTELUKAST SODIUM (10MG) 10 MG TABLET PO SCH (21:02)
[2017-08-28 22:59] VITALS: BP_SYST 111
[2017-08-29] MEDS: IPRATROPIUM NEB FS 0.5 MG/2.5 ML AMPUL.NEB NEB SCH ×6 (03:25→23:30)
[2017-08-29] MEDS: ALBUTEROL FS 2.5 MG/0.5 ML VIAL.NEB NEB SCH ×6 (03:25→23:30)
[2017-08-29 07:21] LABS: BASOPHILS % (AUTO) 0.1 % (0.0-2.0); HEMATOCRIT 39 % (33-45); HEMOGLOBIN 12.9 g/dL (11.5-14.8); LYMPHOCYTES # (AUTO) 0.8 /CMM (0.8-4.8); LYMPHOCYTES % (AUTO) 10.8 % (20.0-44.0); MEAN CORPUSCULAR HEMOGLOBIN 32 PG (26.0-33.0); MEAN CORPUSCULAR HGB CONC 33 g/dl (31.0-36.0); MEAN CORPUSCULAR VOLUME 96 fL (82-100); MONOCYTES # (AUTO) 0.7 /CMM (0.1-1.30); MONOCYTES % (AUTO) 9.6 % (2.0-12.0); NEUTROPHILS % (AUTO) 79.5 % (43.0-81.0); PLATELET COUNT (AUTO) 140 /CMM (150-450); RDW COEFFICIENT OF VARIATION 13.1 (11.5-15.0); RED BLOOD CELL COUNT(AUTO) 4.06 MIL/uL (4.0-5.2); WHITE BLOOD COUNT (AUTO) 7.6 K/uL (4.3-11.0)
[2017-08-29] MEDS: ACETYLCYSTEINE 20% SOLN 800 MG/4 ML VIAL NEB SCH ×3 (07:43→23:30)
[2017-08-29 07:45] LABS: CALCIUM, SERUM 9.1 mg/dL (8.5-10.1); CREATININE 0.7 mg/dL (0.6-1.3); MAGNESIUM 2.4 mg/dL (1.8-2.4); PHOSPHORUS 4.2 mg/dL (2.5-4.9); POTASSIUM 4.1 mmol/L (3.5-5.1)
[2017-08-29 08:00] VITALS: BP_SYST 118; BP_SYST 140; BP_DIAS 72; BP_DIAS 93
--- NOTE | 2017-08-29 08:05 | NUR ---
RN NOTES RECEIVED PT. PT IS STABLE AND RESTING IN BED. A/OX4. NO S/S OF SOB. PT BREATHING IS SOMEWHAT LABORED, HOWEVER O2SAT WNL. PT IS ON O2 2L VIA O2 MASK. IV ACCESS LOCATED ON LEFT ARM. NO C/O PAIN AT THIS TIME. IV ACCESS LOCATED ON LEFT ARM, HL. SAFETY MEASURES IN PLACE, CALL LIGHT WITHIN REACH. WILL CONTINUE TO MONITOR.
[2017-08-29] MEDS: MULTIVITAMINS,THERAGRAN 1 UDTAB TABLET PO SCH (08:11)
[2017-08-29] MEDS: LORAZEPAM 1 MG TABLET PO PRN ×3 (08:11→21:04)
[2017-08-29] MEDS: [UNRECOGNIZED DRUG - OTHER] PO SCH ×3 (08:11→17:22)
[2017-08-29] MEDS: METHADONE HCL 10 MG TABLET PO SCH (08:11)
[2017-08-29] MEDS: methylPREDNISolone SOD SUCC 125 MG/2ML VIAL IV SCH ×3 (08:19→17:00)
[2017-08-29] MEDS: PANTOPRAZOLE 40 MG VIAL IV SCH (08:19)
[2017-08-29] MEDS: PYRIDOXINE HCL 50 MG TABLET PO SCH (09:49)
[2017-08-29] MEDS: ONDANSETRON HCL/PF 4 MG/2 ML VIAL IVP PRN ×2 (10:53→19:02)
[2017-08-29] MEDS: GABAPENTIN 100 MG CAPSULE PO SCH ×2 (12:05→17:00)
--- NOTE | 2017-08-29 19:30 | NUR ---
RN CLOSING NOTES PT IN HER ROOM. A/OX4, NO S/S OF RESP DISTRESS OR SOB. NO C/O PAIN AT THIS TIME. PT C/O MILD ANXIETY, ATIVAN DUE AT 2029. ALL PT NEEDS ANTICIPATED AND MET. SAFETY MEASURES IN PLACE, CALL LIGHT IN REACH. WILL ENDORSE TO RN CLINICAL APPEALS FOR MYRON.
--- NOTE | 2017-08-29 19:45 | NUR ---
MS RN INITIAL NOTES PT IS OUT OF BED STANDING, STABLE. A/O X3 ABLE TO MAKE NEEDS KNOWN. NO SIGNS OF SOB OR DISTRESS. BREATHING EVENLY AND UNLABORED ON RA. TOLERATING ACTIVITY WELL. BED IS IN LOW AND LOCKED POSITION, CALL LIGHT IS WITHIN REACH. WILL CONTINUE TO MONITOR PT
[2017-08-29 20:00] VITALS: BP 145/81
[2017-08-29] MEDS: MONTELUKAST SODIUM (10MG) 10 MG TABLET PO SCH (21:04)
[2017-08-29] MEDS: CEFTRIAXONE 1 G in IV D5W 50 ML IV SCH (21:04)
--- NOTE | 2017-08-29 22:00 | NUR ---
PT IS REFUSING BREATHING TX
--- NOTE | 2017-08-29 23:55 | NUR ---
RT PT REFUSED HHN TX AT THIS TIME. RN AWARE. NO SOB OR DISTRESS NOTED.
[2017-08-30] MEDS: ALBUTEROL FS 2.5 MG/0.5 ML VIAL.NEB NEB SCH ×3 (03:30→10:34)
[2017-08-30] MEDS: IPRATROPIUM NEB FS 0.5 MG/2.5 ML AMPUL.NEB NEB SCH ×3 (03:30→10:34)
--- NOTE | 2017-08-30 06:50 | NUR ---
MS RN CLOSING NOTES PT IS IN BED SLEEPING. CONTINUED TO REFUSE BREATHING TX THROUGHOUT THE NIGHT. STABLE THROUGHOUT MY SHIFT. BED IS IN LOW AND LOCKED POSITION, CALL LIGHT WITHIN REACH. WILL ENDORSE TO DAYSHIFT
--- NOTE | 2017-08-30 07:22 | NUR ---
MS/RN NOTES PATIENT RECEIVED ASLEEP IN BED, EASILY AWAKENS. A/O X3, SAME ABLE TO MAKE NEEDS KNOWN, NO C/O OF PAIN OR DISCOMFORTS AT THIS TIME. ON ROOM AIR, BREATHING EVEN AND UNLABORED. IV ACCESS ON LEFT FA G#18 INTACT AND PATENT. HOB ELEVATED. BED IN LOW AND LOCKED POSITION. CALL DE LA TORRE WITHIN REACH. WILL CONTINUE TO MONITOR PT ACCORDINGLY.
[2017-08-30] MEDS: ACETYLCYSTEINE 20% SOLN 800 MG/4 ML VIAL NEB SCH (08:01)
[2017-08-30] MEDS: GABAPENTIN 100 MG CAPSULE PO SCH ×2 (08:19→12:00)
[2017-08-30] MEDS: [UNRECOGNIZED DRUG - OTHER] PO SCH ×2 (08:19→12:00)
[2017-08-30] MEDS: LORAZEPAM 1 MG TABLET PO PRN (08:19)
[2017-08-30] MEDS: PANTOPRAZOLE 40 MG VIAL IV SCH (08:20)
[2017-08-30] MEDS: PYRIDOXINE HCL 50 MG TABLET PO SCH (08:20)
[2017-08-30] MEDS: MULTIVITAMINS,THERAGRAN 1 UDTAB TABLET PO SCH (08:20)
[2017-08-30] MEDS: methylPREDNISolone SOD SUCC 125 MG/2ML VIAL IV SCH ×2 (08:21→12:00)
[2017-08-30] MEDS: METHADONE HCL 10 MG TABLET PO SCH (09:09)
[2017-08-30] MEDS ORDERED: CEFU250S PO (09:46)
[2017-08-30] MEDS ORDERED: IPRA12.9 INH (09:46)
[2017-08-30] MEDS ORDERED: ALBU6.7H INH (09:46)
[2017-08-30] MEDS ORDERED: FLU VACC QS 2017-18(36MOS+)/PF 0.5 ML DISP.SYRIN IM ONE (12:00)
--- NOTE | 2017-08-30 15:12 | NUR ---
RN DISCHARGED NOTES PT DISCHARGE HOME IN STABLE CONDITION. SHE LEF6T UNIT AT 1350H VIA WHEELCAHIR ACCOMPANIED BY REAR ADMIRAL TO A WAITING TAXI OUTSIDE THE LOBBY. PT A/O X 3 IN NO ACUTE SIGNS OF DISTRESS DURING DISCHARGED. V/S TAKEN AND RECORDED. FLU VACCINES GIVEN TO LEFT ARM. BELONGINGS LIST CHECKED, COUNTED AND SIGNED FORM. PHOTOS OF SKIN TAKEN AND FILED ON CHART. PEDRITO TEACHINGS GIVEN AND VERBALIZED UNDERSTANDING. NEW PROSCRIPTIONS OF MEDS GIVEN. MD AND CHARGE NURSE AWARE OF DISCHARGE.
== END 2017-08-30 14:00 | disposition home or self-care (01) | DRG 177 ==
LOC: ER 15:20 → TELE 17:06 → MED 08-26 09:36
PROVIDERS: ADMIT Internal Medicine; ATTEND Internal Medicine
DX: J15.6 Pneumonia due to other Gram-negative bacteria (principal); J96.21 Acute and chronic respiratory failure with hypoxia; E43 Unspecified severe protein-calorie malnutrition; I11.0 Hypertensive heart disease with heart failure; I50.32 Chronic diastolic (congestive) heart failure; R13.10 Dysphagia, unspecified; B35.1 Tinea unguium; J44.1 Chronic obstructive pulmonary disease with (acute) exacerbation; Z68.1 Body mass index [BMI] 19.9 or less, adult; J15.9 Unspecified bacterial pneumonia; I87.2 Venous insufficiency (chronic) (peripheral); M19.90 Unspecified osteoarthritis, unspecified site; Z88.1 Allergy status to other antibiotic agents; Z88.5 Allergy status to narcotic agent; Z88.0 Allergy status to penicillin; Z88.8 Allergy status to other drugs, medicaments and biological substances; Z91.048 Other nonmedicinal substance allergy status; B19.20 Unspecified viral hepatitis C without hepatic coma; H40.9 Unspecified glaucoma; Z90.49 Acquired absence of other specified parts of digestive tract; Z87.891 Personal history of nicotine dependence; Z79.899 Other long term (current) drug therapy; F19.11 Other psychoactive substance abuse, in remission; I70.0 Atherosclerosis of aorta
CPT/HCPCS: 36415; 70490-TC; 71010-TC; 80048-TC; 80053-TC; 80061-TC; 80076-TC; 83735-TC; 83880; 84100-TC; 84134-TC; 84484-TC; 85025-TC; 87081-TC; 87400; 94799-TC; A4216; A4606; C9113; J0456; J0696; J1100; J1940; J1956; J2405; J2930; J3475; J7030; J7050; J7060; Q2036; Z7610

== ENCOUNTER 2017-09-06 12:10 | Outpatient (CLI) | payer MEDICARE, MEDICAID ==
[~2017-09-06 12:10] MED LIST changes: +ACID1TAB12 PO; +ALBU6.7H INH; -ALPR1TAB2 PO; +CEFU250S PO; +FAMO40TA7 PO; +IPRA12.9 INH; +L. A1CAP12 PO; +LINA145C PO; +LORA0.5T PO; +LORA1TAB PO; +MAGN400T26 PO; +METH10OR11 PO; -METH10TA2 PO; -METH5TAB2 PO; +MONT10TA22 PO; +MULT-24 PO; +PANT40TA4 PO
[2017-09-06 12:23] VITALS: BP 135/80
== END 2017-09-06 23:59 | disposition home or self-care (01) ==
LOC: MSC 12:10
PROVIDERS: ATTEND Internal Medicine
DX: J44.1 Chronic obstructive pulmonary disease with (acute) exacerbation (principal); J15.9 Unspecified bacterial pneumonia; I11.0 Hypertensive heart disease with heart failure; I50.32 Chronic diastolic (congestive) heart failure; J96.11 Chronic respiratory failure with hypoxia; H26.9 Unspecified cataract; H40.9 Unspecified glaucoma; B19.20 Unspecified viral hepatitis C without hepatic coma; E46 Unspecified protein-calorie malnutrition; M19.90 Unspecified osteoarthritis, unspecified site; Z79.899 Other long term (current) drug therapy

== ENCOUNTER 2019-11-05 12:25 | Inpatient (IN) | payer MEDICARE, MEDICAID ==
[~2019-11-05] VITALS: Ht 162.6 cm; Wt 51.3 kg
[~2019-11-05 12:25] MED LIST changes: -ACID1TAB12 PO; -ALBU6.7H INH; +ALBU6.7H9 INH; -CEFU250S PO; -FAMO40TA7 PO; +IPRA12.9 IH; -IPRA12.9 INH; -LORA0.5T PO; -LORA1TAB PO; -MAGN400T26 PO; +[UNRECOGNIZED DRUG - CODE] RIGHTEYE
--- NOTE | 2019-11-05 13:00 | NUR ---
patient sent by PMD for evaluation of left buttocks wound. In no distress, breathing evenly and unlabored. kept comfortable, will continue to monitor accordingly.
[2019-11-05] MEDS ORDERED: VANCOMYCIN 1 GM in IV D5W 250 ML IV ONE (13:30)
[2019-11-05 13:43] LABS: BASOPHILS # (AUTO) 0.1 /CMM (0.0-0.2); BASOPHILS % (AUTO) 0.8 % (0.0-2.0); EOSINOPHILS % (AUTO) 0.7 % (0.0-6.0); HEMATOCRIT 42 % (33-45); HEMOGLOBIN 13.4 g/dL (11.5-14.8); LYMPHOCYTES # (AUTO) 1.4 /CMM (0.8-4.8); LYMPHOCYTES % (AUTO) 17.9 % (20.0-44.0); MEAN CORPUSCULAR HGB CONC 32 g/dl (31.0-36.0); MEAN CORPUSCULAR VOLUME 96 fL (82-100); MONOCYTES # (AUTO) 0.4 /CMM (0.1-1.30); MONOCYTES % (AUTO) 4.7 % (2.0-12.0); NEUTROPHILS # (AUTO) 5.7 /CMM (1.8-8.9); NEUTROPHILS % (AUTO) 75.9 % (43.0-81.0); PLATELET COUNT (AUTO) 237 /CMM (150-450); RED BLOOD CELL COUNT(AUTO) 4.39 MIL/uL (4.0-5.2); WHITE BLOOD COUNT (AUTO) 7.6 K/uL (4.3-11.0)
[2019-11-05 13:49] LABS: CARBON DIOXIDE 31 mmol/L (21-32); CHLORIDE 105 mmol/L (98-107); CREATININE 0.6 mg/dL (0.6-1.3); GLUCOSE 90 mg/dL (74-106); POTASSIUM 4.1 mmol/L (3.5-5.1); SODIUM SERUM 144 mmol/L (136-145); UREA NITROGEN, BLOOD 13 mg/dL (7-18)
[2019-11-05 14:03] LABS: ALANINE AMINOTRANSFERASE 15 U/L (12-78); ALBUMIN 3.4 g/dL (3.4-5.0); ALKALINE PHOSPHATASE 126 U/L (46-116); ASPARTATE AMINOTRANSFERASE 34 U/L (15-37); BILIRUBIN,TOTAL 0.3 mg/dL (0.2-1.0)
[2019-11-05] MEDS ORDERED: ALBU18HF2 IH (15:12)
[2019-11-05] MEDS ORDERED: MELA5TAB PO (15:12)
[2019-11-05] MEDS ORDERED: DOCU-141 PO (15:12)
--- NOTE | 2019-11-05 15:35 | NUR ---
got bed 321-1
[2019-11-05] MEDS ORDERED: MAGNESIUM HYDROXIDE 30 ML UDC PO PRN (16:00)
[2019-11-05] MEDS ORDERED: ONDANSETRON HCL/PF 4 MG/2 ML VIAL IVP PRN (16:00)
[2019-11-05] MEDS ORDERED: ACETAMINOPHEN 325 MG TABLET PO PRN (16:00)
[2019-11-05] MEDS ORDERED: Z GUARD REMEDY 2 OZ OINT TP PRN (16:00)
[2019-11-05] MEDS ORDERED: MAG HYDROX/AL HYDROX/SIMETH 30 ML UDC PO PRN (16:00)
--- NOTE | 2019-11-05 16:27 | NUR ---
report given to Jennifer SPAULDING for bela.
[2019-11-05] MEDS ORDERED: FEE PK DOSING 1 MIN EA MC ONE (16:29)
--- NOTE | 2019-11-05 16:53 | NUR ---
wheeled patient via wheelchair, RN at bedside to assume care.
[2019-11-05] MEDS: DOCUSATE SODIUM 100 MG CAPSULE PO SCH (17:21)
[2019-11-05] MEDS: PANTOPRAZOLE 40 MG TABLET.DR PO SCH (17:21)
--- NOTE | 2019-11-05 17:58 | NUR ---
ADMISSION NOTE PT WAS BROUGHT UP VIA WHEELCHAIR AT THIS TIME, A/O X3-4, BREATHING EVEN AND UNLABORED ON 2L VIA NC, NO S/S OF ANY DISTRESS OR PAIN NOTED AT THIS TIME, RIGHT HAND GAUGE 22 IV IS PATENT AND INTACT, PER PT HER WISHES ARE TO BE DNR/DNI AND WAS INFORMED BY ER NURSE THAT PT IS DNR/DNI BUT NO POLST IN CHART, PT STATED SHE WILL HAVE FRIEND BRING IT. PT BROUGHT HER OWN WALKER WHICH IS AT BEDSIDE, SAFETY PRECAUTIONS IN PLACE, CALL LIGHT IN REACH, WILL MONITOR ACCORDINGLY
--- NOTE | 2019-11-05 19:06 | NUR ---
MS RN NOTE RECEIVED PT IN STABLE CONDITION, A/O X4, NOTED IN BED WATCHING TV. NO SIGNS OF SOB OR DISTRESS, NO COMPLAINTS OF PAIN OR N/V. L HIP WOUND NOTED WITH DRESSING, INTACT. IV IN RA HAND #[address] S/L. ALL CURRENT NEEDS ATTENDED TO. BED LOW, LOCKED, UPPER RAILS UP, AND CALL LIGHT WITHIN REACH. WILL CONT. TO MONITOR.
--- NOTE | 2019-11-05 19:18 | NUR ---
RN CLOSING NOTE PT IN BED AT LOWEST AND LOCKED POSITION WITH SIDE RAILS UP X2, A/O X4 BREATHING EVEN AND UNLABORED ON ON 2L WITH NO S/S OF ANY DISTRESS OR PAIN AT THIS TIME, IV IS PATENT AND INTACT, NOTED TO HAVE LEFT HIP WOUND THAT WAS DRESSED WITH WOUND CARE CONSULT ORDERED, SAFETY PRECAUTIONS IN PLACE, CALL LIGHT IN REACH, ALL NEEDS ATTENDED TO, WILL ENDORSE TO NIGHT RN FOR MYRON.
[2019-11-05] MEDS ORDERED: Medication Not On Formulary EA (Melatonin 10 MG) PO SCH (22:00)
[2019-11-05] MEDS: ACIDOPHILUS/BULGARICUS 1 EACH TAB.CHEW PO SCH (22:08)
[2019-11-05] MEDS: ALBUTEROL FS 2.5 MG/0.5 ML VIAL.NEB NEB SCH (22:40)
[2019-11-05] MEDS: IPRATROPIUM NEB FS 0.5 MG/2.5 ML AMPUL.NEB NEB SCH (22:40)
[2019-11-06] MEDS: ALBUTEROL FS 2.5 MG/0.5 ML VIAL.NEB NEB SCH ×4 (02:00→19:43)
[2019-11-06] MEDS: IPRATROPIUM NEB FS 0.5 MG/2.5 ML AMPUL.NEB NEB SCH ×4 (02:00→19:43)
--- NOTE | 2019-11-06 02:14 | NUR ---
MS RN NOTE PT STATING FEELINGS OF ANXIETY, CHATMAN NOTIFIED, WITH NEW ORDER FOR ATIVAN 0.5 MG PO X1 TIME. NEW ORDER CARRIED OUT. WILL CONT. TO MONITOR.
[2019-11-06] MEDS: VANCOMYCIN 0.75 GM in IV D5W 250 ML IV SCH ×2 (02:31→15:24)
[2019-11-06] MEDS ORDERED: LORAZEPAM 0.5 MG TABLET PO ONE (03:00)
--- NOTE | 2019-11-06 06:36 | NUR ---
MS RN NOTE PT REMAINS IN STABLE CONDITION, A/O X4, NOTED RESTING IN BED. NO SIGNS OF SOB OR DISTRESS, NO COMPLAINTS OF PAIN OR N/V. L HIP WOUND NOTED WITH DRESSING, INTACT. IV IN RA HAND #[address] S/L. ALL CURRENT NEEDS ATTENDED TO. BED LOW, LOCKED, UPPER RAILS UP, AND CALL LIGHT WITHIN REACH. WILL CONT. TO MONITOR AND ENDORSE TO NEXT SHIFT FOR MYRON.
--- NOTE | 2019-11-06 07:10 | NUR ---
RN OPENING NOTE PT IN BED AT LOWEST AND LOCKED POSITION WITH SIDE RAILS UP X2, A/O X4 BREATHING EVEN AND UNLABORED ON 2L WITH NO S/S OF ANY DISTRESS OR PAIN AT THIS TIME, IV IS PATENT AND INTACT, NOTED TO HAVE LEFT HIP WOUND, SAFETY PRECAUTIONS IN PLACE, CALL LIGHT IN REACH, SAFETY PRECAUTIONS IN PLACE, CALL LIGHT IN REACH, WILL MONITOR ACCORDINGLY
[2019-11-06 07:23] LABS: BASOPHILS # (AUTO) 0.1 /CMM (0.0-0.2); EOSINOPHILS % (AUTO) 2.2 % (0.0-6.0); HEMATOCRIT 36 % (33-45); HEMOGLOBIN 11.6 g/dL (11.5-14.8); LYMPHOCYTES # (AUTO) 2.4 /CMM (0.8-4.8); LYMPHOCYTES % (AUTO) 36.5 % (20.0-44.0); MEAN CORPUSCULAR HGB CONC 32 g/dl (31.0-36.0); MEAN CORPUSCULAR VOLUME 94 fL (82-100); MONOCYTES # (AUTO) 0.5 /CMM (0.1-1.30); MONOCYTES % (AUTO) 6.9 % (2.0-12.0); NEUTROPHILS # (AUTO) 3.5 /CMM (1.8-8.9); NEUTROPHILS % (AUTO) 53.4 % (43.0-81.0); PLATELET COUNT (AUTO) 202 /CMM (150-450); RED BLOOD CELL COUNT(AUTO) 3.83 MIL/uL (4.0-5.2); WHITE BLOOD COUNT (AUTO) 6.6 K/uL (4.3-11.0)
[2019-11-06 07:34] LABS: CALCIUM, SERUM 8.6 mg/dL (8.5-10.1); CREATININE 0.7 mg/dL (0.6-1.3); PHOSPHORUS 4.2 mg/dL (2.5-4.9); POTASSIUM 3.9 mmol/L (3.5-5.1)
[2019-11-06] MEDS: DOCUSATE SODIUM 100 MG CAPSULE PO SCH ×3 (08:45→16:43)
[2019-11-06] MEDS: MULTIVITAMINS,THERAGRAN 1 UDTAB TABLET PO SCH ×2 (08:45→08:52)
--- NOTE | 2019-11-06 08:54 | NUR ---
RN NOTE PT REFUSED COLACE AND THERA VITAMIN, STATING SHE ONLY WANTS TO TAKE THE MEDS SHE HAS AT HOME. INFORMED AND EDUCATED ABOUT MED PURPOSE. PT STILL REFUSED. MEDS WERE WASTED DUE TO THEM BEING OPENED AND WASTE WAS SEEN BY JASSON MEZA
[2019-11-06] MEDS ORDERED: LINACLOTIDE 145 MCG PO SCH (09:00)
[2019-11-06] MEDS ORDERED: METHADONE HCL 10 MG/ML PO SCH (09:00)
[2019-11-06] MEDS ORDERED: METHADONE HCL 10 MG TABLET PO SCH (09:00)
[2019-11-06 09:22] VITALS: BP 126/70
[2019-11-06] MEDS ORDERED: LIDOCAINE 1%-EPI 1:100,000 20 ML VIAL TP ONE (11:30)
[2019-11-06] MEDS ORDERED: SILVER NITRATE APPLICATOR 1 EA BOX TP ONE (11:30)
--- NOTE | 2019-11-06 11:30 | NUR ---
RN [facility] [phone] WAS CONTACTED REGARDING METHADONE DOSE FOR PT, FAX SENT REQUESTING RELEASE OF INFORMATION, SPOKE TO SERGIO AT THE CLINIC WHO SAID SHE WOULD FAX OVER MEDICATION DOSAGE, FAX WAS RECEIVED FROM CLINIC AND FORWARD TO OUR PHARMACY. METHADONE WAS VERIFIED, WILL ADMIN ONCE THERE IS ENOUGH IN STOCK.
[2019-11-06] MEDS: METHADONE HCL 10 MG TABLET PO SCH (12:08)
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
[2019-11-06] MEDS: DAKINS QUARTER STRENGTH (0.125%) 480 ML BOTTLE TOP SCH (13:57)
[2019-11-06] MEDS: PANTOPRAZOLE 40 MG TABLET.DR PO SCH (17:09)
--- NOTE | 2019-11-06 18:31 | NUR ---
RN CLOSING NOTE PT IN BED AT LOWEST AND LOCKED POSITION WITH SIDE RAILS UP X2, A/O X4 BREATHING EVEN AND UNLABORED ON WITH NO S/S OF DISTRESS OR PAIN AT THIS TIME, IV IS PATENT AND INTACT, SAFETY PRECAUTIONS IN PLACE, CALL LIGHT IN REACH, ALL NEEDS ATTENDED TO, WILL ENDORSE TO NIGHT RN FOR MYRON.
--- NOTE | 2019-11-06 19:31 | NUR ---
MS RN RECEIVED PATIENT IN BED AWAKE AT CHAIR A/O X 4, STABLE AND NOT IN DISTRESS. WILL CONTINUE TO MONITOR
[2019-11-06 19:59] VITALS: BP 141/86
[2019-11-06 20:00] VITALS: BP 141/86
[2019-11-06] MEDS: ACIDOPHILUS/BULGARICUS 1 EACH TAB.CHEW PO SCH (21:13)
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
[2019-11-07] MEDS ORDERED: LORAZEPAM 0.5 MG TABLET PO ONE (01:00)
--- NOTE | 2019-11-07 01:00 | NUR ---
PAGED HOSPITALIST PT C/O ANXIOUS AND WANTED ATIVAN. PER JESSICA CHATMAN ORDERED ATIVAN 0.5 MG PO TAB ONCE X1 ONLY READ BACK AND VERIFIED ORDERS NOTED AND CARRIED OUT
[2019-11-07] MEDS: IPRATROPIUM NEB FS 0.5 MG/2.5 ML AMPUL.NEB NEB SCH ×4 (01:50→20:00)
[2019-11-07] MEDS: ALBUTEROL FS 2.5 MG/0.5 ML VIAL.NEB NEB SCH ×4 (01:50→20:00)
--- NOTE | 2019-11-07 02:00 | NUR ---
PT CALM AT THIS TIME. WILL CONTINUE TO MONITOR. ATIVAN EFFECTIVE
[2019-11-07] MEDS: VANCOMYCIN 0.75 GM in IV D5W 250 ML IV SCH ×2 (03:11→14:55)
--- NOTE | 2019-11-07 06:15 | NUR ---
ASLEEP AND EASILY AWAKEN, SLEPT WELL. NO S/S OF DISTRESS. NO C/O OF PAIN AT THIS TIME. KEPT CLEAN, DRY AND COMFORTABLE. AM CARE RENDERED, NEEDS ATTENDED AND ANTICIPATED. SAFETY MEASURES AT ALL TIMES. WILL ENDORSE NEXT SHIFT POC.
[2019-11-07 07:09] LABS: CALCIUM, SERUM 8.8 mg/dL (8.5-10.1); POTASSIUM 4.2 mmol/L (3.5-5.1)
[2019-11-07 07:10] LABS: CREATININE 0.7 mg/dL (0.6-1.3)
--- NOTE | 2019-11-07 07:29 | NUR ---
RN OPENING NOTES Patient received on room air, no sob noted, patient shows no s/s of pain at this time. Remains a/o x3, L hip wound debridement S/P. L wrist 24, R hand 22. Bed at the lowest setting, call light within reach, side rails up x2.
[2019-11-07 07:30] VITALS: BP 127/98
[2019-11-07] MEDS: METHADONE HCL 10 MG TABLET PO SCH (08:44)
[2019-11-07] MEDS: MULTIVITAMINS,THERAGRAN 1 UDTAB TABLET PO SCH (08:46)
[2019-11-07] MEDS: DOCUSATE SODIUM 100 MG CAPSULE PO SCH ×2 (08:46→17:31)
[2019-11-07] MEDS: DAKINS QUARTER STRENGTH (0.125%) 480 ML BOTTLE TOP SCH (08:48)
[2019-11-07] MEDS: LORAZEPAM 0.5 MG TABLET PO PRN ×2 (09:18→17:32)
--- NOTE | 2019-11-07 11:09 | NUR ---
WOUND CARE CONSULT WOUND CARE RECEIVED CONSULT FOR LEFT HIP WOUND. WOUND CARE WILL DEFER CONSULT AND TREATMENT PLANS TO PLASTIC SURGICAL TEAM WHO ARE CURRENTLY FOLLOWING. PATIENT WITH YOLANDE AT 20, WILL SEE PRN.
[2019-11-07 11:37] LABS: BILIRUBIN,DIRECT 0.1 mg/dL (0.0-0.2); BILIRUBIN,TOTAL 0.2 mg/dL (0.2-1.0)
[2019-11-07 15:21] LABS: APPEARANCE,URINE CLEAR (CLEAR); BILIRUBIN,URINE NEGATIVE (NEGATIVE); BLOOD, URINE NEGATIVE Ery/uL (NEGATIVE); COLOR,URINE YELLOW (YELLOW); KETONES,URINE NEGATIVE (NEGATIVE); LEUKOCYTE ESTERASE ,URINE NEGATIVE (NEGATIVE); NITRITE, URINE NEGATIVE (NEGATIVE); PH,URINE 7.5 (5.0-8.0); PROTEIN,URINE NEGATIVE (NEGATIVE); UGLUCOSE NEGATIVE (NEGATIVE); UROBILINOGEN,URINE 0.2 EU/dL (0.2)
[2019-11-07] MEDS: PANTOPRAZOLE 40 MG TABLET.DR PO SCH (17:31)
--- NOTE | 2019-11-07 18:12 | NUR ---
RN CLOSING NOTES Patient remains on room air, no sob noted, a/o x4, and is s/p L hip wound debridement. BRP and has good gait. Regular diet, and discussed with FNS. L wrist 24 and R hand 22. Bed at the lowest setting, call light within reach, side rails up x2. Will give report to NOC RN for MYRON bedside.
--- NOTE | 2019-11-07 19:22 | NUR ---
MS RN RECEIVED PATIENT IN CHAIR AWAKE WATCHING TV A/O X 4, STABLE AND NOT IN DISTRESS. WILL CONTINUE TO MONITOR
[2019-11-07 20:00] VITALS: BP 146/79
[2019-11-07 20:08] VITALS: BP 146/79
[2019-11-07] MEDS: ACIDOPHILUS/BULGARICUS 1 EACH TAB.CHEW PO SCH (21:29)
[2019-11-08] MEDS: IPRATROPIUM NEB FS 0.5 MG/2.5 ML AMPUL.NEB NEB SCH ×3 (01:28→19:44)
[2019-11-08] MEDS: ALBUTEROL FS 2.5 MG/0.5 ML VIAL.NEB NEB SCH ×3 (01:28→19:44)
[2019-11-08] MEDS: VANCOMYCIN 0.75 GM in IV D5W 250 ML IV SCH ×2 (02:58→14:41)
--- NOTE | 2019-11-08 06:26 | NUR ---
PT ASLEEP AND EASILY AWAKEN, SLEPT WELL. NOT IN APPARENT DISTRESS. AM CARE RENDERED, KEPT CLEAN, DRY AND COMFORTABLE. NEEDS ATTENDED AND ANTICIPATED. SAFETY MEASURES AT ALL TIMES. WILL ENDORSE NEXT SHIFT POC.
--- NOTE | 2019-11-08 07:33 | NUR ---
RN OPENING NOTES Patient received on room air, no sob noted, patient denies pain at this time and remains a/o x3. Patient lying down comfortably on her bed with no issues. Bed at the lowest setting, call light within reach, side rails up x2.
[2019-11-08 08:00] VITALS: BP 120/70
[2019-11-08] MEDS: MULTIVITAMINS,THERAGRAN 1 UDTAB TABLET PO SCH (08:35)
[2019-11-08] MEDS: DOCUSATE SODIUM 100 MG CAPSULE PO SCH ×2 (08:35→17:19)
[2019-11-08] MEDS: METHADONE HCL 10 MG TABLET PO SCH (08:36)
[2019-11-08] MEDS: LORAZEPAM 0.5 MG TABLET PO PRN ×3 (08:42→23:24)
[2019-11-08] MEDS: DAKINS QUARTER STRENGTH (0.125%) 480 ML BOTTLE TOP SCH (08:44)
[2019-11-08 09:52] LABS: CALCIUM, SERUM 8.6 mg/dL (8.5-10.1); CREATININE 0.7 mg/dL (0.6-1.3); POTASSIUM 3.9 mmol/L (3.5-5.1)
[2019-11-08 16:00] VITALS: BP 131/81
[2019-11-08] MEDS: PANTOPRAZOLE 40 MG TABLET.DR PO SCH (17:19)
--- NOTE | 2019-11-08 18:13 | NUR ---
RN CLOSING NOTES Patient remains on room air, no sob noted, changed patients wound dressing. Patient took all the medications with no side effects. Bed at the lowest setting, call light within reach, side rails up x2. Will give report to NOC RN for MYRON bedside.
--- NOTE | 2019-11-08 19:30 | NUR ---
MS RN RECEIVED PATIENT IN AWAKE WATCHING TV A/O X 3, STABLE AND NOT IN DISTRESS. WILL CONTINUE TO MONITOR
[2019-11-08 20:00] VITALS: BP 136/77
[2019-11-08] MEDS: ACIDOPHILUS/BULGARICUS 1 EACH TAB.CHEW PO SCH (21:40)
[2019-11-08 21:44] VITALS: BP 136/77
[2019-11-09] MEDS: ALBUTEROL FS 2.5 MG/0.5 ML VIAL.NEB NEB SCH ×4 (01:20→19:30)
[2019-11-09] MEDS: IPRATROPIUM NEB FS 0.5 MG/2.5 ML AMPUL.NEB NEB SCH ×4 (01:20→19:30)
[2019-11-09] MEDS: VANCOMYCIN 0.75 GM in IV D5W 250 ML IV SCH ×2 (02:00→15:26)
--- NOTE | 2019-11-09 06:24 | NUR ---
MS RN PT SLEPT WELL. KEPT CLEAN, DRY AND COMFORTABLE. NEEDS ATTENDED AND ANTICIPATED. STABLE CONDITION. SAFETY MEASURES AT ALL TIMES. WILL ENDORSE NEXT SHIFT POC.
--- NOTE | 2019-11-09 06:38 | NUR ---
PT REFUSED CULTURE TO BE TAKEN AT THIS TIME. PT VERBALIZED "IM SLEEPING LETS DO IT LATER" WILL ENDORSE DAY RN
[2019-11-09 06:53] LABS: CALCIUM, SERUM 9.1 mg/dL (8.5-10.1); CREATININE 0.6 mg/dL (0.6-1.3); POTASSIUM 3.8 mmol/L (3.5-5.1)
--- NOTE | 2019-11-09 07:25 | NUR ---
MS RN NOTES PATIENT IN BED EYES CLOSED EASY TO AROUSE, RESPOND TO VERBAL AND TACTILE STIMULI. NO ACUTE DISTRESS NOTED. BREATHING UNLABORED. NO SOB NOTED. IV ACCESS PATENT AND INTACT, NO REDNESS, NO SWELLING. SAFETY MEASURES IN PLACE. CALL LIGHT WITHIN REACH. WILL CONTINUE TO MONITOR ACCORDINGLY.
[2019-11-09 08:00] VITALS: BP 128/72
[2019-11-09] MEDS: DOCUSATE SODIUM 100 MG CAPSULE PO SCH ×2 (09:20→16:49)
[2019-11-09] MEDS: MULTIVITAMINS,THERAGRAN 1 UDTAB TABLET PO SCH (09:20)
[2019-11-09] MEDS: METHADONE HCL 10 MG TABLET PO SCH (09:22)
[2019-11-09] MEDS: DAKINS QUARTER STRENGTH (0.125%) 480 ML BOTTLE TOP SCH (09:24)
--- NOTE | 2019-11-09 13:15 | NUR ---
MS RN NOTES WOUND SPECIMEN COLLECTED, CALLED LABORATORY FOR LATHE TENDER.
[2019-11-09] MEDS: LORAZEPAM 0.5 MG TABLET PO PRN (15:26)
--- NOTE | 2019-11-09 15:26 | NUR ---
MS RN NOTES NOTED PATIENT BECAME ANXIOUS, ATIVAN GIVEN ORDERED.
[2019-11-09 16:00] VITALS: BP 137/81
[2019-11-09] MEDS: PANTOPRAZOLE 40 MG TABLET.DR PO SCH (17:22)
--- NOTE | 2019-11-09 19:00 | NUR ---
MS RN NOTES PATIENT IN BED ALERT ORIENTED X 3. NO ACUTE DISTRESS NOTED. BREATHING UNLABORED. NO SOB NOTED. IV ACCESS PATENT AND INTACT, NO REDNESS, NO SWELLING NOTED. NEEDS ATTENDED AND ANTICIPATED. SAFETY MEASURES IN PLACE. CALL LIGHT WITHIN REACH. WILL ENDORSE TO NIGHT NURSE FOR CONTINUITY OF CARE.
--- NOTE | 2019-11-09 19:01 | NUR ---
MS RN OPENING NOTES Received patient awake on bed. On RA, no SOB/respiratory distress noted. No complaints made at this time. Kept on bed clean, dry and comfortable. Call light within easy reach. On fall and aspiration precautions. Will continue to monitor accordingly.
[2019-11-09 20:23] VITALS: BP 142/77
[2019-11-09] MEDS: ACIDOPHILUS/BULGARICUS 1 EACH TAB.CHEW PO SCH (21:23)
[2019-11-10] MEDS: IPRATROPIUM NEB FS 0.5 MG/2.5 ML AMPUL.NEB NEB SCH ×4 (00:26→20:38)
[2019-11-10] MEDS: ALBUTEROL FS 2.5 MG/0.5 ML VIAL.NEB NEB SCH ×4 (00:27→20:38)
[2019-11-10] MEDS: VANCOMYCIN 0.75 GM in IV D5W 250 ML IV SCH ×2 (03:25→15:21)
--- NOTE | 2019-11-10 06:53 | NUR ---
MS RN CLOSING NOTES PATIENT ASLEEP, EASILY AWAKEN. NO NEW UNUSUALITIES NOTED. AFEBRILE THE WHOLE SHIFT. ALL DUE MEDS GIVEN ORDERED. ALL NURSING NEEDS ATTENDED. WOUND DRESSING CHANGED ACCORDINGLY, PATIENT TOLERATED THE PROCEDURE WELL. KEPT ON BED CLEAN, DRY AND COMFORTABLE. CALL LIGHT WITHIN EASY REACH. ON FALL AND ASPIRATION PRECAUTIONS. ENDORSED.
[2019-11-10 06:57] LABS: CALCIUM, SERUM 8.6 mg/dL (8.5-10.1); CREATININE 0.6 mg/dL (0.6-1.3); POTASSIUM 3.6 mmol/L (3.5-5.1)
[2019-11-10 08:00] VITALS: BP 124/82
[2019-11-10] MEDS: DOCUSATE SODIUM 100 MG CAPSULE PO SCH ×2 (08:58→17:19)
[2019-11-10] MEDS: MULTIVITAMINS,THERAGRAN 1 UDTAB TABLET PO SCH (08:58)
[2019-11-10] MEDS: METHADONE HCL 10 MG TABLET PO SCH (08:59)
[2019-11-10] MEDS: DAKINS QUARTER STRENGTH (0.125%) 480 ML BOTTLE TOP SCH (09:00)
[2019-11-10] MEDS: LORAZEPAM 0.5 MG TABLET PO PRN (11:58)
[2019-11-10 16:00] VITALS: BP 130/88
[2019-11-10] MEDS: PANTOPRAZOLE 40 MG TABLET.DR PO SCH (17:19)
--- NOTE | 2019-11-10 19:00 | NUR ---
MS RN NOTES PATIENT IN BED ALERT ORIENTED X 3. NO ACUTE DISTRESS NOTED. BREATHING UNLABORED. NO SOB NOTED. IV ACCESS PATENT AND INTACT, NO REDNESS, NO SWELLING. NEEDS ATTENDED AND ANTICIPATED. SAFETY MEASURES IN PLACE. CALL LIGHT WITHIN REACH. WILL ENDORSE TO NIGHT NURSE TO CONTINUITY OF CARE.
--- NOTE | 2019-11-10 19:00 | NUR ---
MS RN OPENING NOTES Received patient awake, sitting on bed. On RA, no SOB/respiratory distress noted. Patient denies any discomfort at this time. Patient noted ambulatory with steady gait. Kept on bed clean, dry and comfortable. Call light within easy reach. On fall and aspiration precautions. Will continue to monitor accordingly.
[2019-11-10 20:00] VITALS: BP 135/84
[2019-11-10] MEDS: ACIDOPHILUS/BULGARICUS 1 EACH TAB.CHEW PO SCH (21:10)
[2019-11-11] MEDS: IPRATROPIUM NEB FS 0.5 MG/2.5 ML AMPUL.NEB NEB SCH ×4 (00:37→20:02)
[2019-11-11] MEDS: ALBUTEROL FS 2.5 MG/0.5 ML VIAL.NEB NEB SCH ×4 (00:37→20:02)
[2019-11-11] MEDS: VANCOMYCIN 0.75 GM in IV D5W 250 ML IV SCH ×2 (03:19→16:40)
--- NOTE | 2019-11-11 06:29 | NUR ---
MS RN CLOSING NOTES Patient asleep, easily awaken. No new unusualities noted. All nursing needs attended, due meds given as ordered. Kept on bed clean, dry and comfortable. On fall and aspiration precautions. Call light within easy reach. Endorsed.
[2019-11-11 07:13] LABS: CREATININE 0.7 mg/dL (0.6-1.3); POTASSIUM 3.8 mmol/L (3.5-5.1)
[2019-11-11 07:30] VITALS: BP 127/77
[2019-11-11 08:00] VITALS: BP 127/77
--- NOTE | 2019-11-11 08:00 | NUR ---
RN OPENING NOTES RECEIVED PATIENT HAVING BREAKFAST. A/OX3, ABLE TO MAKE NEEDS KNOWN. NOT IN ANY FORM OF DISTRESS. NO SOB. DENIED PAIN AND DISCOMFORT AT THIS TIME. IV ACCESS INTACT AND PATENT. KEPT PATIENT SAFE AND COMFORT. BED IN LOW/LOCKED POSITION. SIDERAILS UPX2, CALL LIGHT IN REACH. WILL CONTINUE TO MONITOR ACCORDINGLY.
[2019-11-11] MEDS: DOCUSATE SODIUM 100 MG CAPSULE PO SCH ×2 (08:44→17:10)
[2019-11-11] MEDS: MULTIVITAMINS,THERAGRAN 1 UDTAB TABLET PO SCH (08:45)
[2019-11-11] MEDS: METHADONE HCL 10 MG TABLET PO SCH (08:46)
[2019-11-11] MEDS: DAKINS QUARTER STRENGTH (0.125%) 480 ML BOTTLE TOP SCH (08:50)
[2019-11-11 16:00] VITALS: BP 131/70
[2019-11-11] MEDS: PANTOPRAZOLE 40 MG TABLET.DR PO SCH (17:10)
[2019-11-11] MEDS: LORAZEPAM 0.5 MG TABLET PO PRN (18:36)
--- NOTE | 2019-11-11 18:36 | NUR ---
rn notes administered Ativan 0.5 mg po prn for anxiety per patient request v/s taken bp - 131/70, p-85, continued monitoring.
--- NOTE | 2019-11-11 19:15 | NUR ---
RN CLOSING NOTES PATIENT IN STABLE CONDITION. ALL NEEDS ATTENDED AND PROVIDED. ALL DUE MEDICATIONS GIVEN ORDERED. KEPT PATIENT SAFE AND COMFORTABLE. BED IN LOW/LOCKED POSITION, SIDERAILS UPX2, CALL LIGHT IN REACH. WILL ENDORSED TO NIGHT RN FOR MYRON.
--- NOTE | 2019-11-11 19:15 | NUR ---
PICC LINE INSERTED B Y PICC LINE NURSE, CONSENT SIGNED. RIGHT BRACH 32 CM.
--- NOTE | 2019-11-11 19:16 | NUR ---
MS RN OPENING NOTES Received patient A/Ox3, awake, sitting on bed eating dinner. No complaints made at this time. S/P newly inserted for midline, dressing clean, dry and intact, no unusualities noted. Removed peripheral IV LFA G#24, complete and intact. Kept on bed clean, dry and comfortable. Call light within easy reach. On fall and aspiration precautions. Will continue to monitor accordingly.
[2019-11-11 20:00] VITALS: BP 136/85
[2019-11-11 20:38] VITALS: BP 136/85
[2019-11-11] MEDS: ACIDOPHILUS/BULGARICUS 1 EACH TAB.CHEW PO SCH (21:20)
[2019-11-12] MEDS: IPRATROPIUM NEB FS 0.5 MG/2.5 ML AMPUL.NEB NEB SCH ×4 (01:30→19:39)
[2019-11-12] MEDS: ALBUTEROL FS 2.5 MG/0.5 ML VIAL.NEB NEB SCH ×4 (01:30→19:39)
[2019-11-12] MEDS: VANCOMYCIN 0.75 GM in IV D5W 250 ML IV SCH ×2 (02:05→14:21)
--- NOTE | 2019-11-12 06:41 | NUR ---
MS RN CLOSING NOTES Patient asleep on bed, on semi-Stephens's position. On RA, no respiratory distress noted. No s/sx of discomfort noted at this time. PICC line dressing remained intact, clean and dry; able to draw blood for labs, flushed accordingly. All nursing needs attended, due meds given as ordered. Patient able to repositions self independently. Patient attended self needs independently. Kept on bed clean, dry and comfortable. Call light within easy reach. On fall and aspiration precautions. For D/C today to [facility]. Endorsed to the next shift.
[2019-11-12 06:44] LABS: CALCIUM, SERUM 8.7 mg/dL (8.5-10.1); CREATININE 0.9 mg/dL (0.6-1.3); POTASSIUM 3.7 mmol/L (3.5-5.1)
--- NOTE | 2019-11-12 07:30 | NUR ---
RN MS NOTES PT IN BED, ASLEEP, EASY TO AROUSE, ALERT AND ORIENTED, NO COMPLAINT AT THIS TIME, RESPIRATIONS NORMAL, CALL LIGHT WITHIN REACH, KEPT WARM AND COMFORTABLE.
[2019-11-12 08:00] VITALS: BP 133/83
[2019-11-12] MEDS: METHADONE HCL 10 MG TABLET PO SCH (08:29)
[2019-11-12] MEDS: DOCUSATE SODIUM 100 MG CAPSULE PO SCH ×2 (08:29→17:08)
[2019-11-12] MEDS: MULTIVITAMINS,THERAGRAN 1 UDTAB TABLET PO SCH (08:30)
[2019-11-12] MEDS: DAKINS QUARTER STRENGTH (0.125%) 480 ML BOTTLE TOP SCH (08:30)
--- NOTE | 2019-11-12 13:00 | NUR ---
RN MS NOTES PT IN BED, AWAKE, ALERT AND ORIENTED, NOT IN PAIN OR DISTRESS, PT ABLE TO AMBULATE WITH HER CANE, TOLERATING CURRENT DIET, SEEN BY DR. SCHWARTZ AND ROJELIO WOODRUFF, CALL LIGHT WITHIN REACH, NEEDS ATTENDED.
[2019-11-12] MEDS: LORAZEPAM 0.5 MG TABLET PO PRN (14:34)
[2019-11-12 16:00] VITALS: BP 129/82
[2019-11-12] MEDS: PANTOPRAZOLE 40 MG TABLET.DR PO SCH (17:08)
--- NOTE | 2019-11-12 18:10 | NUR ---
RN MS NOTES PT IN BED, AWAKE, ALERT AND ORIENTED, DENIES PAIN, NOT IN DISTRESS, CALL LIGHT WITHIN REACH, AMBULATES WITH HER COOL INSIDE HER ROOM, PM MEDS GIVEN,TOLERATING CURRENT DIET, ALL NEEDS ATTENDED.
--- NOTE | 2019-11-12 19:35 | NUR ---
RN OPENING NOTES RECEIVED REPORT FROM DAYSRIFT RN ESTELA. FOUND Pt AWAKE, WALKING AROUND IN THE ROOM, WATCHING TV. NO S/S OF ACUTE DISTRESS OR SOB NOTED. Pt IS A/OX3, VERBAL, ABLE TO MAKE NEEDS KNOWN. IV ACCESS ON RONNIE PICC LINE. SAFETY MEASURES IN PLACE. BED LOW, LOCKED, HOB ELEVATED, SIDE RAILS UP, CALL LIGHT AND BEDSIDE TABLE WITHIN REACH. WILL CONTINUE TO MONITOR Pt's CONDITION AND SAFETY THROUGHOUT THE NIGHT.
[2019-11-12 20:05] VITALS: BP 119/75
[2019-11-12] MEDS: ACIDOPHILUS/BULGARICUS 1 EACH TAB.CHEW PO SCH (22:21)
[2019-11-13] MEDS: ALBUTEROL FS 2.5 MG/0.5 ML VIAL.NEB NEB SCH ×3 (01:35→12:52)
[2019-11-13] MEDS: IPRATROPIUM NEB FS 0.5 MG/2.5 ML AMPUL.NEB NEB SCH ×3 (01:35→12:52)
[2019-11-13] MEDS: VANCOMYCIN 0.75 GM in IV D5W 250 ML IV SCH (03:09)
[2019-11-13 06:51] LABS: CALCIUM, SERUM 8.8 mg/dL (8.5-10.1); CREATININE 0.8 mg/dL (0.6-1.3); POTASSIUM 3.9 mmol/L (3.5-5.1)
--- NOTE | 2019-11-13 07:21 | NUR ---
RN CLOSING NOTES NO SIGNIFICANT CHANGES IN Pt's CONDITION. Pt REMAINED STABLE PER BASELINE. NO S/S OF ACUTE DISTRESS OR SOB NOTED DURING THE NIGHT. ALL NEEDS MET AND ATTENDED TO. SAFETY MEASURES IN PLACE. Pt IS AWAKE, WATCHING TV, WITH UNLABORED RESPIRATIONS AND EQUAL CHEST RISE AND FALL. WILL ENDORSE TO DAYSHIFT RN FOR Pt's MYRON.
--- NOTE | 2019-11-13 07:30 | NUR ---
RN MS NOTES PT AWAKE, ALERT AND ORIENTED, WALKING INSIDE HER ROOM WITH A CANE, NO COMPLAINT AT THIS TIME, RESPIRATIONS NORMAL, CALL LIGHT WITHIN REACH, NEEDS ATTENDED, ISOLATION PRECAUTIONS OBSERVED.
[2019-11-13] MEDS: DOCUSATE SODIUM 100 MG CAPSULE PO SCH (08:30)
[2019-11-13] MEDS: METHADONE HCL 10 MG TABLET PO SCH (08:37)
[2019-11-13] MEDS: DAKINS QUARTER STRENGTH (0.125%) 480 ML BOTTLE TOP SCH (08:39)
[2019-11-13] MEDS: MULTIVITAMINS,THERAGRAN 1 UDTAB TABLET PO SCH (09:00)
[2019-11-13 09:56] VITALS: BP 154/81
--- NOTE | 2019-11-13 14:37 | NUR ---
RN MS NOTES PT TOOK THE REST OF HER METHADONE.
--- NOTE | 2019-11-13 14:55 | NUR ---
RN MS NOTES PT AWAKE, ALERT AND ORIENTED, NO COMPLAINT OF PAIN, NOT IN DISTRESS, WALKING INSIDE HER ROOM WITH HER CANE WITH SLOW AND STEADY GAIT, DISCHARGE AND MEDICATION INSTRUCTIONS PROVIDED TO PT, VERBALIZED UNDERSTANDING, WOUND TREATMENT AND DRESSING CHANGE DONE, BELONGINGS ACCOUNTED FOR, REPORT GIVEN TO [facility], PICKED UP BY 2 AMBULANCE PERSONNEL, LEFT VIA GUERNEY IN STABLE CONDITION
== END 2019-11-13 14:50 | DRG 579 ==
LOC: ER 12:32 → MED 15:47 → TELE2 16:26 → MEDSG2 11-06 05:55
PROVIDERS: ADMIT Internal Medicine; ATTEND Nurse Practitioner Acute Care
PROC: 0QB30ZZ Excision of Left Pelvic Bone, Open Approach (ICD-10-PCS; principal; 2019-11-06)
PROC: 02HV33Z Insertion of Infusion Device into Superior Vena Cava, Percutaneous Approach (ICD-10-PCS; 2019-11-11)
PROC: B548ZZA Ultrasonography of Superior Vena Cava, Guidance (ICD-10-PCS; 2019-11-11)
DX: L03.116 Cellulitis of left lower limb (principal); L89.154 Pressure ulcer of sacral region, stage 4; E43 Unspecified severe protein-calorie malnutrition; J44.1 Chronic obstructive pulmonary disease with (acute) exacerbation; E87.2 Acidosis; F11.20 Opioid dependence, uncomplicated; Z68.1 Body mass index [BMI] 19.9 or less, adult; S31.829A Unspecified open wound of left buttock, initial encounter; X58.XXXA Exposure to other specified factors, initial encounter; Y92.89 Other specified places as the place of occurrence of the external cause; L08.9 Local infection of the skin and subcutaneous tissue, unspecified; B95.62 Methicillin resistant Staphylococcus aureus infection as the cause of diseases classified elsewhere; K21.9 Gastro-esophageal reflux disease without esophagitis; E88.09 Other disorders of plasma-protein metabolism, not elsewhere classified; M62.50 Muscle wasting and atrophy, not elsewhere classified, unspecified site; G89.4 Chronic pain syndrome; K59.09 Other constipation; M19.90 Unspecified osteoarthritis, unspecified site; M06.9 Rheumatoid arthritis, unspecified; Z87.891 Personal history of nicotine dependence; M54.9 Dorsalgia, unspecified; Z88.0 Allergy status to penicillin
CPT/HCPCS: 36415; 36569; 73502; 73700-TC; 80048-TC; 80076-TC; 80202-TC; 81000-TC; 82247-TC; 82248-TC; 83605-TC; 83735-TC; 84100-TC; 85025-TC; 85730-TC; 87040-TC; 87070-TC; 87081-TC; 87086-TC; 94799-TC; A6253; A6407; C1751; G0378; J3370; J3490; J7060

== ENCOUNTER 2019-12-22 13:15 | Outpatient (CLI) | payer MEDICARE, MEDICAID ==
[~2019-12-22 13:15] MED LIST changes: +ALBU18HF2 IH; -ALBU6.7H9 INH; +DOCU-141 PO; +MELA5TAB PO; -MONT10TA22 PO; -[UNRECOGNIZED DRUG - CODE] RIGHTEYE
== END 2019-12-22 23:59 | disposition home health service (06) ==
LOC: WOU 13:15
PROVIDERS: ATTEND Surgery
DX: L89.224 Pressure ulcer of left hip, stage 4 (principal); E43 Unspecified severe protein-calorie malnutrition; Z68.1 Body mass index [BMI] 19.9 or less, adult; G89.29 Other chronic pain; M54.5 Low back pain; J44.9 Chronic obstructive pulmonary disease, unspecified; Z87.891 Personal history of nicotine dependence
CPT/HCPCS: 11044; J3490

== ENCOUNTER 2020-01-05 12:15 | Outpatient (CLI) | payer MEDICARE, MEDICAID | END 2020-01-05 23:59 | disposition home health service (06) | LOC: WOU 12:15 | PROVIDERS: ATTEND Surgery | DX: L89.224 Pressure ulcer of left hip, stage 4 (principal); J44.9 Chronic obstructive pulmonary disease, unspecified; Z87.891 Personal history of nicotine dependence; E43 Unspecified severe protein-calorie malnutrition; Z68.1 Body mass index [BMI] 19.9 or less, adult; M54.5 Low back pain | CPT/HCPCS: 11043; J3490 ==

== ENCOUNTER 2020-01-13 14:00 | Outpatient (CLI) | payer MEDICARE, MEDICAID ==
[2020-01-13 15:10] LABS: BASOPHILS # (AUTO) 0.1 /CMM (0.0-0.2); BASOPHILS % (AUTO) 1.3 % (0.0-2.0); EOSINOPHILS % (AUTO) 0.2 % (0.0-6.0); HEMATOCRIT 38 % (33-45); HEMOGLOBIN 12.5 g/dL (11.5-14.8); LYMPHOCYTES # (AUTO) 1.3 /CMM (0.8-4.8); LYMPHOCYTES % (AUTO) 16.5 % (20.0-44.0); MEAN CORPUSCULAR HGB CONC 33 g/dl (31.0-36.0); MEAN CORPUSCULAR VOLUME 93 fL (82-100); MONOCYTES # (AUTO) 0.5 /CMM (0.1-1.30); MONOCYTES % (AUTO) 6.5 % (2.0-12.0); NEUTROPHILS # (AUTO) 5.7 /CMM (1.8-8.9); NEUTROPHILS % (AUTO) 75.5 % (43.0-81.0); PLATELET COUNT (AUTO) 215 /CMM (150-450); WHITE BLOOD COUNT (AUTO) 7.6 K/uL (4.3-11.0)
[2020-01-13 15:25] LABS: ALBUMIN 3.8 g/dL (3.4-5.0)
[2020-01-13 18:58] LABS: PREALBUMIN 15.2 MG/DL (18.0-35.7)
== END 2020-01-13 23:59 | disposition home health service (06) ==
LOC: WOU 14:00
PROVIDERS: ATTEND Surgery
DX: L89.224 Pressure ulcer of left hip, stage 4 (principal); J44.9 Chronic obstructive pulmonary disease, unspecified; Z87.891 Personal history of nicotine dependence; M54.5 Low back pain; E43 Unspecified severe protein-calorie malnutrition; Z68.1 Body mass index [BMI] 19.9 or less, adult; Z79.899 Other long term (current) drug therapy
CPT/HCPCS: 11044; 36415; 82040; 84134; 85025; J3490

== ENCOUNTER 2020-01-27 13:47 | Outpatient (CLI) | payer MEDICARE, MEDICAID | END 2020-01-27 23:59 | disposition home health service (06) | LOC: WOU 13:47 | PROVIDERS: ATTEND Surgery | DX: L89.224 Pressure ulcer of left hip, stage 4 (principal); J44.9 Chronic obstructive pulmonary disease, unspecified; M54.5 Low back pain; E43 Unspecified severe protein-calorie malnutrition; Z68.1 Body mass index [BMI] 19.9 or less, adult; Z79.899 Other long term (current) drug therapy; Z87.891 Personal history of nicotine dependence | CPT/HCPCS: 11043; J3490 ==

== ENCOUNTER 2020-02-12 10:00 | Outpatient (CLI) | payer MEDICARE, MEDICAID | END 2020-02-12 23:59 | disposition home health service (06) | LOC: WOU 10:00 | PROVIDERS: ATTEND Surgery | DX: L89.224 Pressure ulcer of left hip, stage 4 (principal); J44.1 Chronic obstructive pulmonary disease with (acute) exacerbation; G89.29 Other chronic pain; M54.5 Low back pain; E43 Unspecified severe protein-calorie malnutrition; Z79.899 Other long term (current) drug therapy; Z87.891 Personal history of nicotine dependence | CPT/HCPCS: 11043; J3490 ==

== ENCOUNTER 2020-03-10 15:20 | Emergency (ER) | payer MEDICARE, OTHER ==
[~2020-03-10] VITALS: Ht 160 cm; Wt 51.7 kg
--- NOTE | 2020-03-10 15:35 | NUR ---
PT BIB RA C/O WITNESSED TRIP AND FALL AT HOME BACK OF THE HEAD LACERATION, PT IS AAOX3, NOT IN RESPIRATORY DISTRESS, HOOKED TO MONITOR, KEPT RESTED AND COMFORTABLE, WILL CONTINUE TO MONITOR.
--- NOTE | 2020-03-10 15:50 | NUR ---
AT BEDSIDE FOR EVAL.
--- NOTE | 2020-03-10 16:17 | NUR ---
PT IS WHEELED TO CT SCAN VIA [facility].
--- NOTE | 2020-03-10 18:10 | NUR ---
[facility] ETA 1900H TO [facility]H.
--- NOTE | 2020-03-10 18:15 | NUR ---
CALLED [facility] FOR TRANSPORT TO [facility]. ETA 45 MINUTES.
--- NOTE | 2020-03-10 19:18 | NUR ---
TOOK OVER CARE. AWAITING CROCHET BEADER.
--- NOTE | 2020-03-10 20:05 | NUR ---
REPORT GIVEN TO TRANSPORT. PT TRANSPORTED HOME. VSS. AMBULATORY WITH STEADY GAIT.
[2020-03-10 20:06] VITALS: BP 108/69
== END 2020-03-10 19:35 | disposition home or self-care (01) ==
LOC: ER 15:22
DX: S01.01XA Laceration without foreign body of scalp, initial encounter (principal); R51 Headache; M54.2 Cervicalgia; Z86.19 Personal history of other infectious and parasitic diseases; Z98.890 Other specified postprocedural states; Z88.1 Allergy status to other antibiotic agents; Z88.0 Allergy status to penicillin; Z88.5 Allergy status to narcotic agent; Z88.6 Allergy status to analgesic agent; Z88.8 Allergy status to other drugs, medicaments and biological substances; Z60.2 Problems related to living alone; Z79.899 Other long term (current) drug therapy; W01.0XXA Fall on same level from slipping, tripping and stumbling without subsequent striking against object, initial encounter; Y93.89 Activity, other specified; Y92.89 Other specified places as the place of occurrence of the external cause; Y99.8 Other external cause status
CPT/HCPCS: 70450-TC; 72125-TC

== ENCOUNTER 2020-03-18 08:59 | Emergency (ER) | payer MEDICARE, MEDICAID ==
[~2020-03-18] VITALS: Ht 160 cm; Wt 47.6 kg
--- NOTE | 2020-03-18 09:30 | NUR ---
SEEN AND EXAMINED BY .
--- NOTE | 2020-03-18 09:47 | NUR ---
E COMMERCE STRATEGIST AT BEDSIDE FOR XRAY.
[2020-03-18 10:20] VITALS: BP 112/70
--- NOTE | 2020-03-18 10:20 | NUR ---
Patient discharged to home in stable condition. Written and verbal after care instructions given. Patient verbalizes understanding of instruction.
--- NOTE | 2020-03-18 10:31 | NUR ---
Received call from ED CRN Farzana regarding pt needing transportation to get back home. COMPLAINT ADJUSTER contacted nursing court supervisor Kell for a taxi voucher. Per nursing court supervisor Kell, pt is approved for taxi transportation to her home in [place]. COMPLAINT ADJUSTER updated RN Aneesh in ED to get taxi voucher from nursing court supervisor Kell.
== END 2020-03-18 10:21 | disposition home or self-care (01) ==
LOC: ER 09:06
DX: R05 Cough (principal); R09.81 Nasal congestion; Z86.19 Personal history of other infectious and parasitic diseases; Z98.890 Other specified postprocedural states; Z88.1 Allergy status to other antibiotic agents; Z88.0 Allergy status to penicillin; Z88.5 Allergy status to narcotic agent; Z88.6 Allergy status to analgesic agent; Z60.2 Problems related to living alone; Z79.899 Other long term (current) drug therapy
CPT/HCPCS: 71045-TC

== ENCOUNTER 2020-04-12 11:30 | Outpatient (CLI) | payer MEDICARE, MEDICAID | END 2020-04-12 23:59 | disposition home health service (06) | LOC: WOU 11:30 | PROVIDERS: ATTEND Surgery | DX: L89.224 Pressure ulcer of left hip, stage 4 (principal); E44.0 Moderate protein-calorie malnutrition; Z68.1 Body mass index [BMI] 19.9 or less, adult; M62.50 Muscle wasting and atrophy, not elsewhere classified, unspecified site; J44.9 Chronic obstructive pulmonary disease, unspecified; G89.29 Other chronic pain; M54.9 Dorsalgia, unspecified | CPT/HCPCS: 11043 ==

== ENCOUNTER 2020-04-12 12:47 | Emergency (ER) | payer MEDICARE, OTHER ==
[~2020-04-12] VITALS: Ht 152.4 cm; Wt 44.9 kg
[2020-04-12 12:55] VITALS: BP 127/84
--- NOTE | 2020-04-12 13:19 | NUR ---
Patient discharged to home in stable condition. Written and verbal after care instructions given. Patient verbalizes understanding of instruction.
== END 2020-04-12 13:19 | disposition home or self-care (01) ==
LOC: ER 12:53
DX: S01.01XD Laceration without foreign body of scalp, subsequent encounter (principal); M19.90 Unspecified osteoarthritis, unspecified site; Z98.890 Other specified postprocedural states; Z88.0 Allergy status to penicillin; Z88.1 Allergy status to other antibiotic agents; Z88.8 Allergy status to other drugs, medicaments and biological substances; Z88.6 Allergy status to analgesic agent; Z60.2 Problems related to living alone; Z79.899 Other long term (current) drug therapy; X58.XXXD Exposure to other specified factors, subsequent encounter

== ENCOUNTER 2020-04-19 11:00 | Outpatient (CLI) | payer MEDICARE, OTHER ==
[~2020-04-19 11:00] MED LIST changes: -PANT40TA4 PO; +PANT40TA49 PO
[2020-04-19 12:11] LABS: BASOPHILS % (AUTO) 0.4 % (0.0-2.0); EOSINOPHILS % (AUTO) 0.4 % (0.0-6.0); HEMATOCRIT 38 % (33-45); HEMOGLOBIN 12.1 g/dL (11.5-14.8); LYMPHOCYTES # (AUTO) 0.8 /CMM (0.8-4.8); LYMPHOCYTES % (AUTO) 10.7 % (20.0-44.0); MEAN CORPUSCULAR HGB CONC 32 g/dl (31.0-36.0); MEAN CORPUSCULAR VOLUME 93 fL (82-100); MONOCYTES # (AUTO) 0.4 /CMM (0.1-1.30); NEUTROPHILS # (AUTO) 6.4 /CMM (1.8-8.9); NEUTROPHILS % (AUTO) 83.5 % (43.0-81.0); PLATELET COUNT (AUTO) 209 /CMM (150-450); WHITE BLOOD COUNT (AUTO) 7.7 K/uL (4.3-11.0)
[2020-04-19 12:16] LABS: ALBUMIN 3.1 g/dL (3.4-5.0)
[2020-04-19 12:18] LABS: PREALBUMIN 14.7 MG/DL (18.0-35.7)
== END 2020-04-19 23:59 | disposition home health service (06) ==
LOC: WOU 11:00
PROVIDERS: ATTEND Surgery
DX: L89.224 Pressure ulcer of left hip, stage 4 (principal); E44.0 Moderate protein-calorie malnutrition; Z68.1 Body mass index [BMI] 19.9 or less, adult; M62.50 Muscle wasting and atrophy, not elsewhere classified, unspecified site; J44.9 Chronic obstructive pulmonary disease, unspecified; Z87.891 Personal history of nicotine dependence
CPT/HCPCS: 11043; 36415; 82040-TC; 84134-TC; 85025-TC

== ENCOUNTER 2020-04-26 11:55 | Outpatient (CLI) | payer MEDICARE, OTHER ==
[~2020-04-26 11:55] MED LIST changes: +PANT40TA4 PO; -PANT40TA49 PO
[2020-04-26] MEDS ORDERED: LORA-259 PO (13:59)
== END 2020-04-26 23:59 | disposition home or self-care (01) ==
LOC: WOU 11:55
PROVIDERS: ATTEND Surgery
DX: L89.224 Pressure ulcer of left hip, stage 4 (principal); M62.50 Muscle wasting and atrophy, not elsewhere classified, unspecified site; E44.0 Moderate protein-calorie malnutrition; Z68.1 Body mass index [BMI] 19.9 or less, adult; J44.9 Chronic obstructive pulmonary disease, unspecified; R00.0 Tachycardia, unspecified; R06.02 Shortness of breath; G89.29 Other chronic pain; M54.9 Dorsalgia, unspecified
CPT/HCPCS: 11043; 11046; G0463

== ENCOUNTER 2020-04-26 12:23 | Emergency (ER) | payer MEDICARE, OTHER ==
[~2020-04-26] VITALS: Ht 160 cm; Wt 45.4 kg
[~2020-04-26 12:23] MED LIST changes: -PANT40TA4 PO; +PANT40TA49 PO
--- NOTE | 2020-04-26 13:11 | NUR ---
BIB [facility], TO ER BED 5. AAOX4. SOB, NOTED SATTING @ 88-90% ON RA. PT REPORTS THAT SHE IS BASELINE O2 USER AT 2LPM VIA NC AT HOME. PLACED ON O2 SATTING @ 95%. AMBULATORY WITH AN AIDE OF FRONT WHEELED WALKER. SENT FOR SOB AND DESAT. PT WAS HAVING HER WOUND CLEANING WHEN THE EPISODE BEGAN. PER REPORT, PT GOT TACHY BUT NOT NOTED UPON ASSESSMENT. MD WAS AT THE BEDSIDE FOR EVAL. ORDERS RECEIVED NOTED AND CARRIED OUT. IV LINE ON [id number], BLOOD DRAWN AND GIVEN TO BUSINESS INTELLIGENCE ENGINEER AT BEDSIDE. PT ON MONITOR.
[2020-04-26 13:13] LABS: BASOPHILS # (AUTO) 0.1 /CMM (0.0-0.2); BASOPHILS % (AUTO) 0.8 % (0.0-2.0); EOSINOPHILS % (AUTO) 0.7 % (0.0-6.0); HEMATOCRIT 37 % (33-45); LYMPHOCYTES # (AUTO) 1.1 /CMM (0.8-4.8); LYMPHOCYTES % (AUTO) 13.3 % (20.0-44.0); MEAN CORPUSCULAR HGB CONC 32 g/dl (31.0-36.0); MEAN CORPUSCULAR VOLUME 93 fL (82-100); MONOCYTES # (AUTO) 0.5 /CMM (0.1-1.30); MONOCYTES % (AUTO) 5.8 % (2.0-12.0); NEUTROPHILS # (AUTO) 6.3 /CMM (1.8-8.9); NEUTROPHILS % (AUTO) 79.4 % (43.0-81.0); PLATELET COUNT (AUTO) 235 /CMM (150-450); RED BLOOD CELL COUNT(AUTO) 3.96 MIL/uL (4.0-5.2)
[2020-04-26 13:21] LABS: CALCIUM, SERUM 8.7 mg/dL (8.5-10.1); CARBON DIOXIDE 31 mmol/L (21-32); CHLORIDE 99 mmol/L (98-107); CREATININE 0.8 mg/dL (0.6-1.3); GLUCOSE 118 mg/dL (74-106); POTASSIUM 3.8 mmol/L (3.5-5.1); SODIUM SERUM 138 mmol/L (136-145); UREA NITROGEN, BLOOD 10 mg/dL (7-18)
[2020-04-26 13:27] LABS: ALANINE AMINOTRANSFERASE 23 U/L (12-78); ALBUMIN 3.3 g/dL (3.4-5.0); ALKALINE PHOSPHATASE 83 U/L (46-116); ASPARTATE AMINOTRANSFERASE 38 U/L (15-37); BILIRUBIN,DIRECT 0.1 mg/dL (0.0-0.2); BILIRUBIN,TOTAL 0.2 mg/dL (0.2-1.0); TOTAL PROTEIN, SERUM 7.2 g/dL (6.4-8.2)
--- NOTE | 2020-04-26 13:35 | NUR ---
PANEL ON-CALL PAGED
[2020-04-26 13:50] LABS: APPEARANCE,URINE Clear (CLEAR); BILIRUBIN,URINE Negative (NEGATIVE); BLOOD, URINE Negative Ery/uL (NEGATIVE); COLOR,URINE Yellow (YELLOW); KETONES,URINE Negative (NEGATIVE); LEUKOCYTE ESTERASE ,URINE Negative (NEGATIVE); NITRITE, URINE Negative (NEGATIVE); PH,URINE 6.5 (5.0-8.0); PROTEIN,URINE Negative (NEGATIVE); UGLUCOSE Negative (NEGATIVE); UROBILINOGEN,URINE 0.2 EU/dL (0.2)
[2020-04-26] MEDS ORDERED: LORA-259 PO (13:59)
[2020-04-26] MEDS ORDERED: IV NS 0.9% 1,000 ML IV PRN (14:00)
[2020-04-26] MEDS ORDERED: MAG HYDROX/AL HYDROX/SIMETH 30 ML UDC PO PRN (14:00)
[2020-04-26] MEDS ORDERED: Z GUARD REMEDY 2 OZ OINT TP PRN (14:00)
[2020-04-26] MEDS ORDERED: ONDANSETRON HCL/PF 4 MG/2 ML VIAL IVP PRN (14:00)
[2020-04-26] MEDS ORDERED: ACETAMINOPHEN 325 MG TABLET PO PRN (14:00)
[2020-04-26] MEDS ORDERED: IV NS 0.9% 500 ML BAG IV ONE (14:00)
[2020-04-26] MEDS ORDERED: ZOLPIDEM TARTRATE 5 MG TABLET PO PRN (14:00)
--- NOTE | 2020-04-26 14:35 | NUR ---
room assignment: [id number] tele
[2020-04-26 15:03] VITALS: BP 105/69
--- NOTE | 2020-04-26 15:30 | NUR ---
REPORT GIVEN TO JASSON PARRISH FOR MYRON
--- NOTE | 2020-04-26 15:50 | NUR ---
Patient does not wish to proceed with medical care recommended by Silvestre Agustin. Patient given information related to possible complications, up to and including , which could occur as a result of leaving the hospital at this time. Patient verbalizes understanding of risks involved due to leaving against medical advice. Patient has signed AMA form.
--- NOTE | 2020-04-26 15:51 | NUR ---
IV removed. Catheter intact and site benign. Pressure and 4x4 applied to site. No bleeding noted. Pt w/ an aide of a walker ambulatory with a steady gait
== END 2020-04-26 16:09 | disposition left against medical advice (07) ==
LOC: ER 12:29 → TELE1 14:37 → UNDOADMIN 14:37 → ER 16:09
DX: E87.2 Acidosis (principal); J96.10 Chronic respiratory failure, unspecified whether with hypoxia or hypercapnia; S31.829D Unspecified open wound of left buttock, subsequent encounter; X58.XXXD Exposure to other specified factors, subsequent encounter; Z86.19 Personal history of other infectious and parasitic diseases; M19.90 Unspecified osteoarthritis, unspecified site; Z90.49 Acquired absence of other specified parts of digestive tract
CPT/HCPCS: 36415; 71045; 80048; 80076; 81001; 83605; 84145; 84484; 85025; 85730; 87040 ×2; 87086; 93005; 96360; 99285; J7040; 81000-TC; C9803-CS; U0003-CS

== ENCOUNTER 2020-08-19 12:50 | Outpatient (CLI) | payer MEDICARE, MEDICAID ==
[~2020-08-19 12:50] MED LIST changes: +LORA-259 PO
[2020-08-19] MEDS ORDERED: LIDOCAINE SOLN 4% 50 ML BOTTLE ONE (13:12)
== END 2020-08-19 23:59 | disposition home health service (06) ==
LOC: WOU 12:50
PROVIDERS: ATTEND Surgery
DX: L89.224 Pressure ulcer of left hip, stage 4 (principal); E44.1 Mild protein-calorie malnutrition; Z68.1 Body mass index [BMI] 19.9 or less, adult; M62.50 Muscle wasting and atrophy, not elsewhere classified, unspecified site; J44.9 Chronic obstructive pulmonary disease, unspecified; Z87.891 Personal history of nicotine dependence; G89.29 Other chronic pain; M54.9 Dorsalgia, unspecified
CPT/HCPCS: 11043

== ENCOUNTER 2020-09-02 13:40 | Outpatient (CLI) | payer MEDICARE, MEDICAID ==
[2020-09-02] MEDS ORDERED: LIDOCAINE SOLN 4% 50 ML BOTTLE ONE (14:00)
== END 2020-09-02 23:59 | disposition home health service (06) ==
LOC: WOU 13:40
PROVIDERS: ATTEND Surgery
DX: L89.224 Pressure ulcer of left hip, stage 4 (principal); E44.1 Mild protein-calorie malnutrition; Z68.1 Body mass index [BMI] 19.9 or less, adult; M62.50 Muscle wasting and atrophy, not elsewhere classified, unspecified site; J44.9 Chronic obstructive pulmonary disease, unspecified; G89.29 Other chronic pain; M54.9 Dorsalgia, unspecified
CPT/HCPCS: 11043

== ENCOUNTER 2020-09-09 13:55 | Outpatient (CLI) | payer MEDICARE, MEDICAID ==
[2020-09-09] MEDS ORDERED: LIDOCAINE SOLN 4% 50 ML BOTTLE ONE (14:06)
[2020-09-09] MEDS ORDERED: LIDOCAINE 2%-EPI 1:100,000 30 ML VIAL ONE (14:25)
== END 2020-09-09 23:59 | disposition home health service (06) ==
LOC: WOU 13:55
PROVIDERS: ATTEND Surgery
DX: L89.224 Pressure ulcer of left hip, stage 4 (principal); E44.1 Mild protein-calorie malnutrition; Z68.1 Body mass index [BMI] 19.9 or less, adult; M62.50 Muscle wasting and atrophy, not elsewhere classified, unspecified site; J44.9 Chronic obstructive pulmonary disease, unspecified; G89.29 Other chronic pain; M54.9 Dorsalgia, unspecified
CPT/HCPCS: 11043; 11046; J3490

== ENCOUNTER 2020-09-13 12:16 | Outpatient (CLI) | payer MEDICARE, MEDICAID ==
[2020-09-13] MEDS ORDERED: LIDOCAINE SOLN 4% 50 ML BOTTLE ONE (12:52)
[2020-09-13] MEDS ORDERED: COLLAGENASE 5 GM TUBE UD TP ONE (13:01)
[2020-09-13] MEDS ORDERED: LIDOCAINE 2%-EPI 1:100,000 30 ML VIAL ONE (13:03)
== END 2020-09-13 23:59 | disposition home health service (06) ==
LOC: WOU 12:16
PROVIDERS: ATTEND Surgery
DX: L89.224 Pressure ulcer of left hip, stage 4 (principal); E44.1 Mild protein-calorie malnutrition; Z68.1 Body mass index [BMI] 19.9 or less, adult; M62.50 Muscle wasting and atrophy, not elsewhere classified, unspecified site; J44.9 Chronic obstructive pulmonary disease, unspecified; G89.29 Other chronic pain; M54.9 Dorsalgia, unspecified
CPT/HCPCS: 11043; 11046; J3490

== ENCOUNTER 2020-09-20 11:15 | Outpatient (CLI) | payer MEDICARE, MEDICAID ==
[2020-09-20] MEDS ORDERED: LIDOCAINE SOLN 4% 50 ML BOTTLE ONE (11:22)
[2020-09-20] MEDS ORDERED: COLLAGENASE 5 GM TUBE UD TP ONE (11:59)
== END 2020-09-20 23:59 | disposition home health service (06) ==
LOC: WOU 11:15
PROVIDERS: ATTEND Surgery
DX: L89.224 Pressure ulcer of left hip, stage 4 (principal); E44.1 Mild protein-calorie malnutrition; Z68.1 Body mass index [BMI] 19.9 or less, adult; M62.50 Muscle wasting and atrophy, not elsewhere classified, unspecified site; J44.9 Chronic obstructive pulmonary disease, unspecified; G89.29 Other chronic pain; M54.9 Dorsalgia, unspecified
CPT/HCPCS: 11043; 15275

== ENCOUNTER 2020-10-07 14:00 | Outpatient (CLI) | payer MEDICARE, MEDICAID ==
[2020-10-07] MEDS ORDERED: LIDOCAINE SOLN 4% 50 ML BOTTLE ONE (14:12)
[2020-10-07] MEDS ORDERED: LIDOCAINE 2%-EPI 1:100,000 30 ML VIAL ONE (14:43)
[2020-10-07] MEDS ORDERED: COLLAGENASE 5 GM TUBE UD TP ONE (14:48)
== END 2020-10-07 23:59 | disposition home health service (06) ==
LOC: WOU 14:00
PROVIDERS: ATTEND Surgery
DX: L89.224 Pressure ulcer of left hip, stage 4 (principal); M62.50 Muscle wasting and atrophy, not elsewhere classified, unspecified site; E44.1 Mild protein-calorie malnutrition; Z68.1 Body mass index [BMI] 19.9 or less, adult; J44.9 Chronic obstructive pulmonary disease, unspecified; G89.29 Other chronic pain; M54.9 Dorsalgia, unspecified
CPT/HCPCS: 11043; J3490

== ENCOUNTER 2020-10-25 11:45 | Outpatient (CLI) | payer MEDICARE, MEDICAID ==
[2020-10-25] MEDS ORDERED: LIDOCAINE SOLN 4% 50 ML BOTTLE ONE (12:00)
[2020-10-25] MEDS ORDERED: COLLAGENASE 5 GM TUBE UD TP ONE (12:31)
== END 2020-10-25 23:59 | disposition home health service (06) ==
LOC: WOU 11:45
PROVIDERS: ATTEND Surgery
DX: L89.224 Pressure ulcer of left hip, stage 4 (principal); M62.50 Muscle wasting and atrophy, not elsewhere classified, unspecified site; E44.1 Mild protein-calorie malnutrition; Z68.1 Body mass index [BMI] 19.9 or less, adult; J44.9 Chronic obstructive pulmonary disease, unspecified; Z87.891 Personal history of nicotine dependence; G89.29 Other chronic pain; M54.9 Dorsalgia, unspecified
CPT/HCPCS: 11043

== ENCOUNTER 2020-11-01 11:20 | Outpatient (CLI) | payer MEDICARE, MEDICAID ==
[2020-11-01] MEDS ORDERED: LIDOCAINE SOLN 4% 50 ML BOTTLE ONE (11:37)
[2020-11-01] MEDS ORDERED: COLLAGENASE 5 GM TUBE UD TP ONE (11:53)
== END 2020-11-01 23:59 | disposition home health service (06) ==
LOC: WOU 11:20
PROVIDERS: ATTEND Surgery
DX: L89.224 Pressure ulcer of left hip, stage 4 (principal); E44.1 Mild protein-calorie malnutrition; Z68.1 Body mass index [BMI] 19.9 or less, adult; M62.50 Muscle wasting and atrophy, not elsewhere classified, unspecified site; J44.9 Chronic obstructive pulmonary disease, unspecified; G89.29 Other chronic pain; M54.9 Dorsalgia, unspecified
CPT/HCPCS: 11043

== ENCOUNTER 2020-11-15 11:45 | Outpatient (CLI) | payer MEDICARE, OTHER ==
[~2020-11-15 11:45] MED LIST changes: +LIDOCAINE SOLN 4% 50 ML BOTTLE ONE
[2020-11-15] MEDS ORDERED: LIDOCAINE 2%-EPI 1:100,000 30 ML VIAL ONE (11:48)
[2020-11-15] MEDS ORDERED: COLLAGENASE 5 GM TUBE UD TP ONE (12:20)
== END 2020-11-15 23:59 | disposition home health service (06) ==
LOC: WOU 11:45
PROVIDERS: ATTEND Surgery
DX: L89.224 Pressure ulcer of left hip, stage 4 (principal); M62.50 Muscle wasting and atrophy, not elsewhere classified, unspecified site; E44.1 Mild protein-calorie malnutrition; Z68.1 Body mass index [BMI] 19.9 or less, adult; J44.9 Chronic obstructive pulmonary disease, unspecified; G89.29 Other chronic pain; M54.9 Dorsalgia, unspecified
CPT/HCPCS: 11043; 11046; J3490

== ENCOUNTER 2020-12-02 14:20 | Outpatient (CLI) | payer MEDICARE, OTHER ==
[~2020-12-02 14:20] MED LIST changes: -LIDOCAINE SOLN 4% 50 ML BOTTLE ONE
== END 2020-12-02 23:59 | disposition home health service (06) ==
LOC: WOU 14:20
PROVIDERS: ATTEND Surgery
DX: L89.224 Pressure ulcer of left hip, stage 4 (principal); M62.50 Muscle wasting and atrophy, not elsewhere classified, unspecified site; E44.1 Mild protein-calorie malnutrition; Z68.1 Body mass index [BMI] 19.9 or less, adult; J44.9 Chronic obstructive pulmonary disease, unspecified; G89.29 Other chronic pain; M54.9 Dorsalgia, unspecified
CPT/HCPCS: 11043

== ENCOUNTER 2020-12-08 09:23 | Outpatient (CLI) | payer MEDICARE, OTHER | END 2020-12-08 23:59 | disposition home or self-care (01) | LOC: CT 09:23 | PROVIDERS: ATTEND Surgery | DX: S71.002A Unspecified open wound, left hip, initial encounter (principal); M25.752 Osteophyte, left hip; X58.XXXA Exposure to other specified factors, initial encounter; Y93.89 Activity, other specified; Y92.89 Other specified places as the place of occurrence of the external cause; Y99.8 Other external cause status | CPT/HCPCS: 73700-TC ==

== ENCOUNTER 2020-12-16 13:50 | Outpatient (CLI) | payer MEDICARE, OTHER ==
[~2020-12-16 13:50] MED LIST changes: +LIDOCAINE SOLN 4% 50 ML BOTTLE ONE
[2020-12-16 14:35] LABS: BASOPHILS # (AUTO) 0.1 /CMM (0.0-0.2); BASOPHILS % (AUTO) 1.1 % (0.0-2.0); EOSINOPHILS % (AUTO) 0.5 % (0.0-6.0); HEMATOCRIT 38 % (33-45); HEMOGLOBIN 12.5 g/dL (11.5-14.8); LYMPHOCYTES # (AUTO) 1.2 /CMM (0.8-4.8); LYMPHOCYTES % (AUTO) 13.9 % (20.0-44.0); MEAN CORPUSCULAR HGB CONC 33 g/dl (31.0-36.0); MEAN CORPUSCULAR VOLUME 95 fL (82-100); MONOCYTES # (AUTO) 0.6 /CMM (0.1-1.30); MONOCYTES % (AUTO) 6.8 % (2.0-12.0); NEUTROPHILS # (AUTO) 6.7 /CMM (1.8-8.9); NEUTROPHILS % (AUTO) 77.7 % (43.0-81.0); PLATELET COUNT (AUTO) 205 /CMM (150-450); RED BLOOD CELL COUNT(AUTO) 4.04 MIL/uL (4.0-5.2); WHITE BLOOD COUNT (AUTO) 8.6 K/uL (4.3-11.0)
[2020-12-16 14:52] LABS: PREALBUMIN 14.8 MG/DL (18.0-35.7)
[2020-12-16 14:53] LABS: ALBUMIN 3.6 g/dL (3.4-5.0); BILIRUBIN,TOTAL 0.4 mg/dL (0.2-1.0); CALCIUM, SERUM 9.4 mg/dL (8.5-10.1); CREATININE 1.1 mg/dL (0.6-1.3); POTASSIUM 4.6 mmol/L (3.5-5.1); TOTAL PROTEIN, SERUM 7.7 g/dL (6.4-8.2)
== END 2020-12-16 23:59 | disposition home health service (06) ==
LOC: WOU 13:50
PROVIDERS: ATTEND Surgery
DX: L89.224 Pressure ulcer of left hip, stage 4 (principal); M62.50 Muscle wasting and atrophy, not elsewhere classified, unspecified site; E44.1 Mild protein-calorie malnutrition; Z68.1 Body mass index [BMI] 19.9 or less, adult; J44.9 Chronic obstructive pulmonary disease, unspecified; Z87.891 Personal history of nicotine dependence; G89.29 Other chronic pain; M54.9 Dorsalgia, unspecified
CPT/HCPCS: 11043; 36415; 80053-TC; 84134-TC; 85025-TC

== ENCOUNTER 2020-12-23 11:10 | Outpatient (CLI) | payer MEDICARE, OTHER ==
[~2020-12-23 11:10] MED LIST changes: -LIDOCAINE SOLN 4% 50 ML BOTTLE ONE
== END 2020-12-23 23:59 | disposition home or self-care (01) ==
LOC: MSC 11:10
PROVIDERS: ATTEND Internal Medicine
DX: J44.9 Chronic obstructive pulmonary disease, unspecified (principal); I11.0 Hypertensive heart disease with heart failure; I50.32 Chronic diastolic (congestive) heart failure; J96.11 Chronic respiratory failure with hypoxia; M19.90 Unspecified osteoarthritis, unspecified site; Z86.19 Personal history of other infectious and parasitic diseases; E43 Unspecified severe protein-calorie malnutrition; F11.20 Opioid dependence, uncomplicated; S71.002D Unspecified open wound, left hip, subsequent encounter

== ENCOUNTER 2021-01-20 13:42 | Outpatient (CLI) | payer MEDICARE, OTHER | END 2021-01-20 23:59 | disposition home health service (06) | LOC: WOU 13:42 | PROVIDERS: ATTEND Surgery | DX: L89.224 Pressure ulcer of left hip, stage 4 (principal); E44.1 Mild protein-calorie malnutrition; Z68.1 Body mass index [BMI] 19.9 or less, adult; M62.50 Muscle wasting and atrophy, not elsewhere classified, unspecified site; J44.9 Chronic obstructive pulmonary disease, unspecified; Z87.891 Personal history of nicotine dependence; G89.29 Other chronic pain; M54.9 Dorsalgia, unspecified | CPT/HCPCS: 11043 ==

== ENCOUNTER 2021-01-27 14:15 | Outpatient (CLI) | payer MEDICARE, OTHER | END 2021-01-27 23:59 | disposition home health service (06) | LOC: WOU 14:15 | PROVIDERS: ATTEND Surgery | DX: L89.224 Pressure ulcer of left hip, stage 4 (principal); E44.1 Mild protein-calorie malnutrition; Z68.1 Body mass index [BMI] 19.9 or less, adult; M62.50 Muscle wasting and atrophy, not elsewhere classified, unspecified site; Z87.891 Personal history of nicotine dependence | CPT/HCPCS: 11043 ==

== ENCOUNTER 2021-02-03 15:00 | Outpatient (CLI) | payer MEDICARE, OTHER ==
[~2021-02-03 15:00] MED LIST changes: +LIDOCAINE SOLN 4% 50 ML BOTTLE ONE
== END 2021-02-03 23:59 | disposition home health service (06) ==
LOC: WOU 15:00
PROVIDERS: ATTEND Surgery
DX: L89.224 Pressure ulcer of left hip, stage 4 (principal); R44.1 Visual hallucinations; Z68.1 Body mass index [BMI] 19.9 or less, adult; M62.50 Muscle wasting and atrophy, not elsewhere classified, unspecified site
CPT/HCPCS: 11043

== ENCOUNTER 2021-02-24 15:00 | Outpatient (CLI) | payer MEDICARE, OTHER | END 2021-02-24 23:59 | disposition home health service (06) | LOC: WOU 15:00 | PROVIDERS: ATTEND Surgery | DX: L89.224 Pressure ulcer of left hip, stage 4 (principal); E44.1 Mild protein-calorie malnutrition; Z68.1 Body mass index [BMI] 19.9 or less, adult; M62.50 Muscle wasting and atrophy, not elsewhere classified, unspecified site; J44.9 Chronic obstructive pulmonary disease, unspecified; Z87.891 Personal history of nicotine dependence; G89.29 Other chronic pain; M54.5 Low back pain | CPT/HCPCS: 11043 ==

== ENCOUNTER 2021-03-03 14:25 | Outpatient (CLI) | payer MEDICARE, OTHER | END 2021-03-03 23:59 | disposition home health service (06) | LOC: WOU 14:25 | PROVIDERS: ATTEND Surgery | DX: L89.224 Pressure ulcer of left hip, stage 4 (principal); E44.1 Mild protein-calorie malnutrition; Z68.1 Body mass index [BMI] 19.9 or less, adult; M62.50 Muscle wasting and atrophy, not elsewhere classified, unspecified site; J44.9 Chronic obstructive pulmonary disease, unspecified; G89.29 Other chronic pain; M54.9 Dorsalgia, unspecified | CPT/HCPCS: 11043 ==